=== PATIENT | male | born 1965 | race Caucasian/White ===

== ENCOUNTER 2017-08-19 15:04 | Emergency (ER) | payer SELFPAY ==
[~2017-08-19] VITALS: Ht 180.3 cm; Wt 86.5 kg
[2017-08-19 15:09] VITALS: TEMP 36.5; Ht 180.3 cm; Wt 86.5 kg
[2017-08-19] MEDS ORDERED: IBUP-1459 PO (15:39)
--- NOTE | 2017-08-19 16:09 | EMERGENCY ROOM VISIT NOTE ---
ED Visit Note First contact with patient: 15:38 CHIEF COMPLAINT: Low back pain HISTORY OF PRESENT ILLNESS: This 51-year-old male patient presents to the emergency department, ambulatory, complaining of pain in the low back which began approximately one week ago. The pain was gradual in onset, is now constant and worse with movement. The patient notes the pain as constant and a 10/10. The patient has taken 800 mg ibuprofen once daily on occasion without relief of the pain. The patient denies any loss of control of their bowel or bladder functions. There has been no leg numbness or weakness, and no change in sensation. No nausea or vomiting or abdominal pain. No chest pain or shortness of breath. The patient has not had prior back injuries, but states he has had a history of similar back pain which was treated successfully with prednisone. No dysuria or increased urinary frequency. REVIEW OF SYSTEMS: A 10 system review of systems was performed with positives and pertinent negatives listed in the history of present illness. All other systems were reviewed and are negative. ALLERGIES: None MEDICATIONS: None PMH: None SOCIAL HISTORY: The patient lives locally with family. He denies drug use. Patient does admit to occasional alcohol use and does chew tobacco. PHYSICAL EXAM: VITALS: Vitals are noted on the nurse's note and reviewed by myself. Vital signs stable. GENERAL: This is a 51-year-old white male, in no acute distress, nondiaphoretic , well-developed well-nourished. SKIN: The skin was without rashes, erythema, edema, or bruising. Capillary refill less than 2 seconds. NECK: Supple without nuchal rigidity. No cervical spine tenderness. No paraspinous muscle tenderness. HEART: Regular rate and rhythm without murmurs gallops or rubs. LUNGS: Clear to auscultation bilaterally without wheezes, rales or rhonchi. ABDOMEN: Positive bowel sounds x 4. Normal tympanic percussion. Soft, nontender, without masses or organomegaly. Green sign negative. MUSCULOSKELETAL: No muscle atrophy, erythema, or edema noted of the back. There is mild tenderness over the lumbar spinous processes. There is moderate tenderness over the paraspinous muscles bilaterally. There is no tenderness over the thoracic spine or paraspinous muscles. There are no muscle spasms present. The patient is slow to move around with maximum tenderness with sitting from a lying position. Negative straight leg raise test. NEURO: Patient was alert and oriented to person place and time. Normal sensation to light and sharp touch. Deep tendon reflexes 2+ in the lower extremities. Dorsalis pedis pulse 2+ bilaterally. Strength 5/5 and equal in the bilateral lower extremities. RADIOLOGY: X-Ray L Spine: L-SPINE MIN 4 VIEWS ROUTINE CLINICAL HISTORY: Low back pain. COMPARISON: Lumbar spine radiographs October 13, 2008. FINDINGS: Note is made of mild rightward curvature of the lumbar spine. Vertebral body heights are maintained. There is no fracture or suspicious lesion. There is mild disc space narrowing with moderate osteophytosis at L5-S1. There is mild multilevel facet arthrosis. IMPRESSION: 1. No acute lumbar spine fracture. 2. Mild degenerative disc disease at L5-S1. Mild multilevel facet arthrosis. 3. Mild rightward curvature of the lumbar spine. Electronically signed by: Sanju Tamayo M.D. 08/19/2017 4:44 PM Dictated Date/Time: 08/19/2017 4:43 PM EMERGENCY DEPARTMENT COURSE: The patient was seen and evaluated as above. X- ray of the lumbar spine was obtained and reviewed by myself and radiologist. This did not show any acute fracture or dislocation. It did show a mild rightward curvature of the lumbar spine and degenerative disc disease at L5-S1. I discussed these findings with the patient, and encouraged him to follow up outpatient with a PCP. Proper treatment was discussed with the patient and he was discharged home in good condition. DIFFERENTIAL DIAGNOSIS: Lumbar strain, degenerative disc disease, arthritis, cauda equina syndrome, sciatica, spinal stenosis, malignancy, and others DIAGNOSIS: Lumbar strain DISCHARGE INSTRUCTIONS AND TREATMENT: You have been treated in the Emergency Department for Back Pain. You have been prescribed Flexeril (cyclobenzaprine) 1-2 tabs orally, three times per day. Do NOT exceed 30 mg (6 tabs) per day. Take your first dose at bedtime as it can make you drowsy. Always take all medications as prescribed. You have been prescribed a Medrol Dosepak. This is a steroid which will help decrease your inflammation, redness, and itch. Take the medicine as prescribed. Take the ENTIRE 6 day course of the steroids. For pain control, you can use the following [id number] medicines (if >12 yo): Ibuprofen(Motrin, Advil) may be used for fever or pain. Use 600mg every six hours as needed. Take with food. Avoid using more than 2400mg in a 24 hour period. Do not use 2400mg per day for more than three consecutive days without physician direction. Prolonged inappropriate use can lead to stomach upset or ulcers. Do not take this medication while taking Prednisone (AND/OR) Acetaminophen(Tylenol) may be used for fever or pain. Use 1000mg every six hours as needed. Avoid using more than 3000mg in a 24 hour period. If this is an acute injury, ice can be applied to the area of pain for the first 3 days to help decrease pain and inflammation. After the first 3 days, a heating pad can be used over the area for continued soothing relief. You should schedule a follow-up appointment in 2-3 days with your Primary Care Provider for further evaluation and treatment of your back pain. Return to the Emergency Department if your current symptoms worsen despite treatment course outlined above, or if you develop any of the following symptoms : intractable pain despite aforementioned treatment course, loss of control of your bowel or bladder, numbness or tingling in your groin, or development of a fever. Problem List Medical Problems: (1) Acute bronchitis Status: Resolved (2) Asthma Status: Chronic (3) GERD (gastroesophageal reflux disease) Status: Chronic (4) H. pylori infection Status: Resolved (5) Pneumonia Status: Resolved Current/Historical Medications Scheduled Cyclobenzaprine Hcl (Flexeril), 5 MG PO TID Methylprednisolone (Medrol Dosepak), 0 PO DAILY Scheduled PRN Ibuprofen (Motrin), 400 MG PO Q2-4 PRN for Pain Allergies Coded Allergies: No Known Allergies (Verified , 08/19/17) Vital Signs Date Time Temp Pulse Resp B/P (MAP) Pulse Ox O2 Delivery O2 Flow Rate FiO2 08/19/17 17:11 60 16 155/74 96 08/19/17 15:09 36.5 78 18 149/76 93 Room Air Departure Information Impression Primary Impression: Strain of lumbar region Dispostion Home / Self-Care Condition GOOD Prescriptions Cyclobenzaprine Hcl (FLEXERIL) 5 Mg Tab 5 MG PO TID, #18 TAB PRN Prov: Christy Pichardo PA-C 08/19/17 Methylprednisolone (MEDROL DOSEPAK) 4 Mg Moisés 0 PO DAILY, #1 PKT Prov: Christy Pichardo PA-C 08/19/17 Referrals No Doctor, Assigned (PCP) Patient Instructions ED Exercises Lumbar Muscles, ED Sprain Strain Lumbar, My [facility] Additional Instructions You have been treated in the Emergency Department for Back Pain. You have been prescribed Flexeril (cyclobenzaprine) 1-2 tabs orally, three times per day. Do NOT exceed 30 mg (6 tabs) per day. Take your first dose at bedtime as it can make you drowsy. Always take all medications as prescribed. You have been prescribed a Medrol Dosepak. This is a steroid which will help decrease your inflammation, redness, and itch. Take the medicine as prescribed. Take the ENTIRE 6 day course of the steroids. For pain control, you can use the following aeep-zmk-ionyvts medicines (if >12 yo): Ibuprofen(Motrin, Advil) may be used for fever or pain. Use 600mg every six hours as needed. Take with food. Avoid using more than 2400mg in a 24 hour period. Do not use 2400mg per day for more than three consecutive days without physician direction. Prolonged inappropriate use can lead to stomach upset or ulcers. Do not take this medication while taking Prednisone (AND/OR) Acetaminophen(Tylenol) may be used for fever or pain. Use 1000mg every six hours as needed. Avoid using more than 3000mg in a 24 hour period. If this is an acute injury, ice can be applied to the area of pain for the first 3 days to help decrease pain and inflammation. After the first 3 days, a heating pad can be used over the area for continued soothing relief. You should schedule a follow-up appointment in 2-3 days with your Primary Care Provider for further evaluation and treatment of your back pain. Return to the Emergency Department if your current symptoms worsen despite treatment course outlined above, or if you develop any of the following symptoms : intractable pain despite aforementioned treatment course, loss of control of your bowel or bladder, numbness or tingling in your groin, or development of a fever. Problem Qualifiers Primary Impression: Strain of lumbar region Encounter type: initial encounter Qualified Codes: S39.012A - Strain of muscle, fascia and tendon of lower back, initial encounter
--- NOTE | 2017-08-19 16:45 | DIAGNOSTIC IMAGING REPORT ---
L-SPINE MIN 4 VIEWS ROUTINE CLINICAL HISTORY: Low back pain. COMPARISON: Lumbar spine radiographs October 13, 2008. FINDINGS: Note is made of mild rightward curvature of the lumbar spine. Vertebral body heights are maintained. There is no fracture or suspicious lesion. There is mild disc space narrowing with moderate osteophytosis at L5-S1. There is mild multilevel facet arthrosis. IMPRESSION: 1. No acute lumbar spine fracture. 2. Mild degenerative disc disease at L5-S1. Mild multilevel facet arthrosis. 3. Mild rightward curvature of the lumbar spine. Electronically signed by: Sanju Tamayo M.D. 08/19/2017 4:44 PM Dictated Date/Time: 08/19/2017 4:43 PM
[2017-08-19] MEDS ORDERED: METH4PAK PO (16:55)
[2017-08-19] MEDS ORDERED: CYCL5TAB PO (16:55)
[2017-08-19 17:11] VITALS: BP 155/74; PULSE 60; O2SAT 96
== END 2017-08-19 17:07 | disposition home or self-care (01) ==
LOC: C.EDB 15:05 → C.EDD 17:07
DX: S39.012A Strain of muscle, fascia and tendon of lower back, initial encounter (principal); X58.XXXA Exposure to other specified factors, initial encounter; F17.220 Nicotine dependence, chewing tobacco, uncomplicated; J45.909 Unspecified asthma, uncomplicated; K21.9 Gastro-esophageal reflux disease without esophagitis

== ENCOUNTER 2017-10-23 12:36 | Emergency (ER) | payer SELFPAY ==
[~2017-10-23] VITALS: Ht 180.3 cm; Wt 86.0 kg
[~2017-10-23 12:36] MED LIST: IBUP-1459 PO
[2017-10-23 12:40] VITALS: TEMP 36.8; Ht 180.3 cm; Wt 86.0 kg
[2017-10-23] MEDS ORDERED: ALBUT/IPRATROP 3MG/0.5MG NEB 3 ML VIAL INH STA (13:02)
[2017-10-23] MEDS ORDERED: SODIUM CHLORIDE 0.9% 1000ML 1,000 ML IV STA (13:02)
[2017-10-23] MEDS ORDERED: FAMOTIDINE 20MG/5ML IV PUSH IV STA (13:02)
[2017-10-23] MEDS ORDERED: ONDANSETRON INJ 2 MG/ML 2 ML VIAL IV STA (13:02)
--- NOTE | 2017-10-23 13:29 | DIAGNOSTIC IMAGING REPORT ---
CHEST ONE VIEW PORTABLE CLINICAL HISTORY: CHEST PAIN dyspnea COMPARISON STUDY: 02/02/2016 FINDINGS: Minimal chronic basilar interstitial change. No focal infiltrate. No evidence of cardiac enlargement. IMPRESSION: No acute process. The above report was generated using voice recognition software. It may contain grammatical, syntax or spelling errors. Electronically signed by: Oz Meehan M.D. 10/23/2017 1:28 PM Dictated Date/Time: 10/23/2017 1:27 PM
[2017-10-23 13:38] VITALS: O2SAT 96
--- NOTE | 2017-10-23 13:39 | EMERGENCY ROOM VISIT NOTE ---
History Report prepared by Felice: Ousmane Harrell Under the Supervision of: Dr. Gee Escudero M.D. First contact with patient: 13:01 Chief Complaint: ILLNESS Stated Complaint: CHEST COLD History of Present Illness The patient is a 51 year old male who presents to the Emergency Room with complaints of cough and congestion that began 3 days ago. The patient reports fevers Tmax 101 F began 2 days ago. He endorses constant chest pain, tightness, nausea, vomiting, and thick sputum production with his cough. He denies diarrhea and previous episodes of chest pain of this degree. The patient denies a history of blood clots, smoking, and no pertinent medical problems. 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 Source of History: patient Onset: 3 days ago Position: chest Quality: other (chest pain and tightness) Timing: constant Associated Symptoms: + fevers, + cough (with sputum production), + chest pain, + nausea, + vomiting, No diarrhea Review of Systems See HPI for pertinent positives and negatives. A total of ten systems were reviewed and were otherwise negative. Past Medical & Surgical Medical Problems: (1) Acute bronchitis (2) Asthma (3) GERD (gastroesophageal reflux disease) (4) H. pylori infection (5) No chronic diseases present (6) Pneumonia Family History Diabetes mellitus FH: cancer Hypertension Lung disease Thromboembolic disease Social History Smoking Status: Never Smoker Alcohol Use: none Drug Use: none Marital Status: Housing Status: lives with family Occupation Status: employed (regional owner operator truck driver) Current/Historical Medications Scheduled Azithromycin (Zithromax), 250 MG PO DAILY Famotidine (Pepcid), 20 MG PO BID Ondasetron Odt (Zofran Odt), 4 MG SL Q6H Scheduled PRN Albuterol Sulf (Proventil 0.083% 2.5MG/3ML), 2.5 MG INH QID PRN for Cough Allergies Coded Allergies: No Known Allergies (Verified , 10/23/17) Physical Exam Vital Signs Date Time Temp Pulse Resp B/P (MAP) Pulse Ox O2 Delivery O2 Flow Rate FiO2 10/23/17 16:20 75 17 128/80 93 10/23/17 15:27 79 19 125/77 93 Room Air 10/23/17 13:55 84 10/23/17 13:38 96 Room Air 10/23/17 12:40 36.8 98 20 141/79 92 Room Air Physical Exam GENERAL: Awake, alert, uncomfortable appearing, in no distress HENT: Normocephalic, atraumatic. Oropharynx unremarkable, dry cracked mucous membranes EYES: Normal conjunctiva. Sclera non-icteric. NECK: Supple. No nuchal rigidity. FROM. No JVD. RESPIRATORY: Clear to auscultation. Decreased breath sounds at bases with scattered rhonchi; scant wheeze CARDIAC: Regular rate, normal rhythm. Extremities warm and well perfused. Pulses equal. ABDOMEN: Soft, non-distended. No tenderness to palpation. No rebound or guarding. No masses. RECTAL: Deferred. MUSCULOSKELETAL: Chest examination reveals no tenderness. The back is symmetrical on inspection without obvious abnormality. There is no CVA tenderness to palpation. No joint edema. LOWER EXTREMITIES: Calves are equal size bilaterally and non-tender. No edema. No discoloration. NEURO: Normal sensorium. No sensory or motor deficits noted. SKIN: No rash or jaundice noted. Medical Decision & Procedures ER Provider Diagnostic Interpretation: Radiology results as stated below per my review and radiologist interpretation: CHEST ONE VIEW PORTABLE CLINICAL HISTORY: CHEST PAIN dyspnea COMPARISON STUDY: 02/02/2016 FINDINGS: Minimal chronic basilar interstitial change. No focal infiltrate. No evidence of cardiac enlargement. IMPRESSION: No acute process. The above report was generated using voice recognition software. It may contain grammatical, syntax or spelling errors. Electronically signed by: Oz Meehan M.D. 10/23/2017 1:28 PM Laboratory Results 10/23/17 13:30 Red Blood Count 4.45, Mean Corpuscular Volume 90.1, Mean Corpuscular Hemoglobin 31.0, Mean Corpuscular Hemoglobin Concent 34.4, Mean Platelet Volume 9.5, Neutrophils (%) (Auto) 70.3, Lymphocytes (%) (Auto) 15.6, Monocytes (%) (Auto) 9.6, Eosinophils (%) (Auto) 3.2, Basophils (%) (Auto) 0.5, Neutrophils # (Auto) 10.56, Lymphocytes # (Auto) 2.35, Monocytes # (Auto) 1.45, Eosinophils # (Auto) 0.48, Basophils # (Auto) 0.07 10/23/17 13:30 Test 10/23/17 13:30 10/23/17 13:45 White Blood Count 15.03 K/uL (4.8-10.8) Red Blood Count 4.45 M/uL (4.7-6.1) Hemoglobin 13.8 g/dL (14.0-18.0) Hematocrit 40.1 % (42-52) Mean Corpuscular Volume 90.1 fL (80-100) Mean Corpuscular Hemoglobin 31.0 pg (25-34) Mean Corpuscular Hemoglobin Concent 34.4 g/dl (32-36) Platelet Count 318 K/uL (130-400) Mean Platelet Volume 9.5 fL (7.4-10.4) Neutrophils (%) (Auto) 70.3 % Lymphocytes (%) (Auto) 15.6 % Monocytes (%) (Auto) 9.6 % Eosinophils (%) (Auto) 3.2 % Basophils (%) (Auto) 0.5 % Neutrophils # (Auto) 10.56 K/uL (1.4-6.5) Lymphocytes # (Auto) 2.35 K/uL (1.2-3.4) Monocytes # (Auto) 1.45 K/uL (0.11-0.59) Eosinophils # (Auto) 0.48 K/uL (0-0.5) Basophils # (Auto) 0.07 K/uL (0-0.2) RDW Standard Deviation 40.5 fL (36.4-46.3) RDW Coefficient of Variation 12.4 % (11.5-14.5) Immature Granulocyte % (Auto) 0.8 % Immature Granulocyte # (Auto) 0.12 K/uL (0.00-0.02) Anion Gap 8.0 mmol/L (3-11) Est Creatinine Clear Calc Drug Dose 119.7 ml/min Estimated GFR () 120.7 Estimated GFR (Non- 104.2 BUN/Creatinine Ratio 15.9 (10-20) Calcium Level 8.9 mg/dl (8.5-10.1) Total Bilirubin 0.2 mg/dl (0.2-1) Direct Bilirubin 0.1 mg/dl (0-0.2) Aspartate Amino Transf (AST/SGOT) 37 U/L (15-37) Alanine Aminotransferase (ALT/SGPT) 77 U/L (12-78) Alkaline Phosphatase 137 U/L (45-117) Troponin I < 0.015 ng/ml (0-0.045) Total Protein 7.6 gm/dl (6.4-8.2) Albumin 2.9 gm/dl (3.4-5.0) Lipase 61 U/L (73-393) Influenza Type A Antigen Neg for Influ A (NEG) Influenza Type B Antigen Neg for Influ B (NEG) Laboratory results reviewed by me Medications Administered Medications (Trade) Dose Ordered Sig/Vishal Route Start Time Stop Time Status Last Admin Dose Admin Albuterol/ Ipratropium (Duoneb) 3 ml NOW STAT INH 10/23/17 13:02 10/23/17 13:10 DC 10/23/17 13:27 3 ML Sodium Chloride 1,000 ml @ 999 mls/hr Q1H1M STAT IV 10/23/17 13:02 10/23/17 14:17 DC 10/23/17 13:27 999 MLS/HR Ondansetron HCl (Zofran Inj) 4 mg NOW STAT IV 10/23/17 13:02 10/23/17 13:10 DC 10/23/17 13:27 4 MG Famotidine (Pepcid 20mg Iv Push) 20 mg NOW STAT IV 10/23/17 13:02 10/23/17 13:10 DC 10/23/17 13:27 20 MG Albuterol (Ventolin Hfa Inhaler) 2 puffs NOW ONCE INH 10/23/17 16:15 10/23/17 16:16 DC 10/23/17 16:20 2 PUFFS Azithromycin (Zithromax Tab) 500 mg NOW ONCE PO 10/23/17 16:15 10/23/17 16:16 DC 10/23/17 16:20 500 MG ECG Rate (beats per minute): 84 Rhythm: normal sinus Findings: other (no ischemia) Medical Decision I reviewed the patient's past medical history, medications, and the nursing notes as described above. The patient's presentation and history were concerning for pneumonia, bronchitis , CHF, ACS, and PE. Patient is a 51-year-old gentleman presents emergency Department with cough congestion, fevers and chills for the past several days per history of present illness. Arrival the patient is uncomfortable no acute distress, afebrile with stable vital signs. He has scant scattered rhonchi and wheezes. Labs demonstrated a WBC of 15. Chest x-ray however unremarkable and negative for pneumonia. The patient did feel mild improvement with neb. Given the patient' s elevated WBC as well as productive cough will treat with azithromycin. Findings and plan for follow-up reviewed with patient. Patient agreeable and d/c 'd per discharge instructions. Impression Primary Impression: Acute bronchitis Scribe Attestation The scribe's documentation has been prepared under my direction and personally reviewed by me in its entirety. I confirm that the note above accurately reflects all work, treatment, procedures, and medical decision making performed by me. Departure Information Dispostion Home / Self-Care Prescriptions Famotidine (PEPCID) 20 Mg Tab 20 MG PO BID for 7 Days, #14 TAB Prov: Gee Escudero M.D. 10/23/17 Ondasetron Odt (ZOFRAN ODT) 4 Mg Tab 4 MG SL Q6H for Nausea, #6 TAB Prov: Gee Escudero M.D. 10/23/17 Azithromycin (Zithromax) 250 Mg Tab 250 MG PO DAILY, #4 TAB Prov: Gee Escudero M.D. 10/23/17 Albuterol Sulf (PROVENTIL 0.083% 2.5MG/3ML) 2.5 Mg/3 Ml Nebu 2.5 MG INH QID Y for Cough, #1 EA Prov: Gee Escudero M.D. 10/23/17 Referrals No Doctor, Assigned (PCP) Patient Instructions Bronchitis Acute, My [facility] Additional Instructions Please follow up with and establish a primary care physician in the next week for re-evaluation. You likely have a bronchitis with an associated gastritis. Otherwise, your exam, EKG, chest xray, and lab results did not show signs of an emergent condition at this time. Albuterol every 4 hours for the next 48 hours then thereafter as needed. Azithromycin as directed. Pepcid for acid reduction. Zofran as needed for nausea. Ensure hydration. Return to the emergency department for worsening symptoms as described in the accompanying instructions.
[2017-10-23 13:54] LABS: BASO % 0.5 %; BASO ABS # 0.07 K/uL (0-0.2); COMPLETE YES; EOS % 3.2 %; HEMATOCRIT 40.1 % (42-52); IG% 0.8 %; LYMPH % 15.6 %; LYMPH ABS # 2.35 K/uL (1.2-3.4); MEAN CELL VOLUME 90.1 fL (80-100); MEAN CORPUSCULAR HGB CONC 34.4 g/dl (32-36); MEAN PLATELET VOLUME 9.5 fL (7.4-10.4); MONO % 9.6 %; NEUT % 70.3 %; PLATELET COUNT 318 K/uL (130-400); RED BLOOD COUNT 4.45 M/uL (4.7-6.1); WHITE BLOOD COUNT 15.03 K/uL (4.8-10.8)
[2017-10-23 14:04] LABS: ALT/SGPT 77 U/L (12-78); AST/SGOT 37 U/L (15-37); BLOOD UREA NITROGEN 12 mg/dl (7-18); BUN/CREATININE RATIO 15.9 (10-20); CALCIUM 8.9 mg/dl (8.5-10.1); CARBON DIOXIDE 28 mmol/L (21-32); CHLORIDE 104 mmol/L (98-107); CREATININE 0.76 mg/dl (0.60-1.40); GLUCOSE 114 mg/dl (70-99); POTASSIUM 3.5 mmol/L (3.5-5.1); SODIUM 140 mmol/L (136-145)
[2017-10-23 14:09] LABS: ALKALINE PHOSPHATASE 137 U/L (45-117)
[2017-10-23] MEDS ORDERED: AZIT250T PO (16:00)
[2017-10-23] MEDS ORDERED: ALBINS/ INH (16:00)
[2017-10-23] MEDS ORDERED: ONDA4TAB10 SL (16:03)
[2017-10-23] MEDS ORDERED: FAMO20TA9 PO (16:03)
[2017-10-23] MEDS ORDERED: AZITHROMYCIN 250 MG TAB PO ONE (16:15)
[2017-10-23] MEDS ORDERED: ALBUTEROL HFA 8 GM INHALER INH ONE (16:15)
[2017-10-23 16:20] VITALS: BP 128/80; PULSE 75; O2SAT 93
== END 2017-10-23 16:21 | disposition home or self-care (01) ==
LOC: C.EDB 12:37 → C.EDA 16:21
DX: J20.9 Acute bronchitis, unspecified (principal); J45.909 Unspecified asthma, uncomplicated; K21.9 Gastro-esophageal reflux disease without esophagitis; Z86.19 Personal history of other infectious and parasitic diseases; Z87.01 Personal history of pneumonia (recurrent); Z79.899 Other long term (current) drug therapy; Z83.3 Family history of diabetes mellitus; Z80.9 Family history of malignant neoplasm, unspecified; Z82.49 Family history of ischemic heart disease and other diseases of the circulatory system

== ENCOUNTER 2019-10-23 13:11 | Observation (INO) ==
[2019-10-23 14:57] LABS: Basophils # (auto) 0.03 K/uL (0-0.2); Basophils % (auto) 0.3 %; Eosinophils # (auto) 0.14 K/uL (0-0.5); Eosinophils % (auto) 1.6 %; Hematocrit (blood only) 43.7 % (42-52); Hemoglobin 15.1 g/dL (14.0-18.0); Immature Granulocytes # (auto) 0.02 K/uL (0.00-0.02); Immature Granulocytes % (auto) 0.2 %; Lymphocytes # (auto) 1.89 K/uL (1.2-3.4); Lymphocytes % (auto) 21.8 %; Mean Corpuscular Hemoglobin 30.8 pg (25-34); Mean Corpuscular Hgb Conc 34.6 g/dL (32-36); Mean Corpuscular Volume 89.2 fL (80-100); Mean Platelet Volume 9.1 fL (7.4-10.4); Monocytes # (auto) 0.69 K/uL (0.11-0.59); Neutrophils # (auto) 5.88 K/uL (1.4-6.5); Neutrophils % (auto) 68.1 %; Platelet Count 240 K/uL (130-400); RDW Coefficient of Variation 12.3 % (11.5-14.5); RDW Standard Deviation 39.3 fL (36.4-46.3); White Blood Count 8.65 K/uL (4.8-10.8)
--- NOTE | 2019-10-23 15:12 | XRay Report ---
XR chest 1V portable CLINICAL HISTORY: Chest Pain pain COMPARISON STUDY: 10/23/2017 FINDINGS: The bones soft tissues and hemidiaphragms are normal. The cardiomediastinal silhouette is n ormal. The lungs are clear. The pulmonary vasculature is normal. IMPRESSION: Negative chest. The above report was generated using voice recognition software. It may contain grammatical, syntax or spelling errors. Electronically signed by: Oz Meehan M.D. 10/23/2019 3:11 PM
[2019-10-23 15:19] LABS: Alanine Aminotransferase 25 U/L (12-78); Albumin Level 3.6 gm/dl (3.4-5.0); Aspartate Aminotransferase 14 U/L (15-37); BUN Creatinine Ratio 18.1 (10-20); Blood Urea Nitrogen 16 mg/dl (7-18); Calcium 8.3 mg/dl (8.5-10.1); Carbon Dioxide 28 mmol/L (21-32); Chloride 109 mmol/L (98-107); Creatinine Clr Calc Pharmacy 98.8 ml/min; Est GFR (Non-African American) 95.8; Glucose 108 mg/dl (70-99); Lipase 51 U/L (73-393); Potassium 3.5 mmol/L (3.5-5.1); Sodium 141 mmol/L (136-145)
[2019-10-23] MEDS ORDERED: ALBUTEROL 0.083% NEBU SOLN 3 ML VIAL NEB STA (15:23)
[2019-10-23 15:24] LABS: Alkaline Phosphatase 57 U/L (45-117); Bilirubin,Total 0.4 mg/dl (0.2-1); Globulin 3.5 gm/dl (2.5-4.0); Total Protein 7.1 gm/dl (6.4-8.2); Troponin I < 0.015 ng/ml (0-0.045)
[2019-10-23] MEDS ORDERED: methylPREDNISolone 125 MG/2 ML VIAL IV STA (15:59)
[2019-10-23] MEDS ORDERED: LEVOFLOXACIN/D5W 750 MG/150 ML BAG IV SCH (16:45)
--- NOTE | 2019-10-23 19:02 | Emergency Department Note ---
Entered by Aurora Burr acting as a scribe for Vahe Meneses DO History of Present Illness General Chief complaint: Chest Pain Stated complaint: CHEST PAIN Source: patient History of Present Illness Onset (ago): month(s) 3 Location: chest Pain Consistency: + other (worsening ) Maximum Pain Intensity: 6 Quality: + other (shortness of breath) Exacerbated By: + other (exertion) Associated symptoms: + chest pain (intermittent), + cough (productive with white phlegm ) and + other (negative recent weight gain; positive "raspy"; negative pain in arm or jaw; negative runny nose; negative sore throat) The patient is a 53 year old male who presents to the Emergency Room with complaints of worsening shortness of breath that began 3 months prior to arriv al. The patient states that this is worse with exertion. He states that he is unable to bend over because he is unable to breathe. The patient denies recent weight gain. The patient states that he gets chest pain intermittently not associated with his shortness of breath. He states that with the episodes of chest pain he gets "raspy" and a productive cough with white phlegm. The patient denies pain in his arm or jaw, runny nose, and sore throat. The patient states that he got an episode of this chest pain at 1000 today, approximately 7 hours prior to arrival and states that he still has it now. He states that he gets this several times per week and it lasts for several hours. Home Medications Home Medications Medication Instructions Recorded Confirmed Type No Known Home Medications 10/23/19 10/23/19 History Allergies Allergy/AdvReac Type Severity Reaction Status Date / Time No Known Allergies Allergy Verified 10/23/19 15:32 Past Med/Surg History Medical History Asthma (Chronic) GERD (gastroesophageal reflux disease) (Chronic) Family History Other No pertinent family history in first degree relatives Social History Feels Safe at Home: Yes Smoking Status: Former smoker Review of Systems See HPI for pertinent positives & negatives. and A total of 10 systems reviewed and were otherwise negative Physical Exam Vital Signs Vital Signs - 24 hr 10/23/19 13:21 10/23/19 14:29 10/23/19 15:00 Temperature 36.6 C Temperature Source Oral Pulse Rate 71 73 Pulse Rate [Exercises] Pulse Rate [Right Finger] 70 Pulse Rate from SpO2 Sensor Respiratory Rate 20 18 18 Respiratory Rate [Exercises] Respiratory Effort / Characteristics Non-Labored Spontaneous Respiratory Depth Normal Respiratory Pattern Regular Blood Pressure 153/83 H 131/82 Blood Pressure [Right Arm] 153/73 H Blood Pressure Mean 106 93 Blood Pressure Mean [Right Arm] 99 Pulse Oximetry 94 94 Pulse Oximetry [Exercises] Oxygen Delivery Method Room Air Sepsis Recent Fever Within 48 Hours No Sepsis New/Unexplained Change in Mental Status No Sepsis Action Taken by Nursing No Action Required 10/23/19 15:01 10/23/19 15:02 10/23/19 15:09 Temperature Temperature Source Pulse Rate 65 63 74 Pulse Rate [Exercises] Pulse Rate [Right Finger] Pulse Rate from SpO2 Sensor 75 Respiratory Rate 20 20 17 Respiratory Rate [Exercises] Respiratory Effort / Characteristics Respiratory Depth Respiratory Pattern Blood Pressure 131/82 Blood Pressure [Right Arm] Blood Pressure Mean 98 Blood Pressure Mean [Right Arm] Pulse Oximetry 95 94 94 Pulse Oximetry [Exercises] Oxygen Delivery Method Room Air Room Air Sepsis Recent Fever Within 48 Hours Sepsis New/Unexplained Change in Mental Status Sepsis Action Taken by Nursing 10/23/19 15:32 10/23/19 15:35 10/23/19 15:57 Temperature Temperature Source Pulse Rate 67 Pulse Rate [Exercises] 88 Pulse Rate [Right Finger] 63 Pulse Rate from SpO2 Sensor 66 Respiratory Rate 15 18 Respiratory Rate [Exercises] 28 H Respiratory Effort / Characteristics Non-Labored Spontaneous Respiratory Depth Respiratory Pattern Blood Pressure Blood Pressure [Right Arm] Blood Pressure Mean Blood Pressure Mean [Right Arm] Pulse Oximetry 94 93 Pulse Oximetry [Exercises] 94 Oxygen Delivery Method Room Air Room Air Sepsis Recent Fever Within 48 Hours Sepsis New/Unexplained Change in Mental Status Sepsis Action Taken by Nursing 10/23/19 16:00 10/23/19 16:01 10/23/19 17:50 Temperature Temperature Source Pulse Rate 58 L 58 L 70 Pulse Rate [Exercises] Pulse Rate [Right Finger] Pulse Rate from SpO2 Sensor 55 L 60 Respiratory Rate 12 16 22 Respiratory Rate [Exercises] Respiratory Effort / Characteristics Respiratory Depth Respiratory Pattern Blood Pressure 139/56 L 138/74 Blood Pressure [Right Arm] Blood Pressure Mean 100 95 Blood Pressure Mean [Right Arm] Pulse Oximetry 79 L 99 97 Pulse Oximetry [Exercises] Oxygen Delivery Method Room Air Sepsis Recent Fever Within 48 Hours Sepsis New/Unexplained Change in Mental Status Sepsis Action Taken by Nursing 10/23/19 18:51 Temperature Temperature Source Pulse Rate 68 Pulse Rate [Exercises] Pulse Rate [Right Finger] Pulse Rate from SpO2 Sensor Respiratory Rate 20 Respiratory Rate [Exercises] Respiratory Effort / Characteristics Respiratory Depth Respiratory Pattern Blood Pressure 141/76 H Blood Pressure [Right Arm] Blood Pressure Mean 97 Blood Pressure Mean [Right Arm] Pulse Oximetry 94 Pulse Oximetry [Exercises] Oxygen Delivery Method Room Air Sepsis Recent Fever Within 48 Hours Sepsis New/Unexplained Change in Mental Status Sepsis Action Taken by Nursing GENERAL: Chronically ill-appearing, disheveled, non-toxic, intermittent cough. EYE EXAM: normal conjunctiva OROPHARYNX: no exudate, no erythema, lips, buccal mucosa, and tongue normal and mucous membranes are moist NECK: supple, no nuchal rigidity, no adenopathy, non-tender LUNGS: Diffuse wheezing bilaterally. Normal chest wall mechanics HEART: no murmurs, S1 normal and S2 normal ABDOMEN: abdomen soft, non-tender, normo-active bowel sounds, no masses, no rebound or guarding. BACK: Back is symmetrical on inspection and there is no deformity, no midline tenderness, no CVA tenderness. SKIN: no rashes and no bruising UPPER EXTREMITIES: upper extremities are grossly normal. LOWER EXTREMITIES: No pitting edema. Calves are equal bilaterally. NEURO EXAM: Normal sensorium, cranial nerves II-XII grossly intact, normal speech, no gross weakness of arms, no gross weakness of legs. Course Course ED COURSE: Vital signs were reviewed and showed normal. The patients medical record was reviewed The above diagnostic studies were performed and reviewed. ED treatments and interventions as stated above. 1645: The patient was evaluated in room C6. A complete history and physical examination was performed. 1636: The patient just became hypoxic. 1637: Upon reevaluation, the patient is resting comfortably. I discussed my findings with the patient and he understands and agrees with the treatment plan. Based on the patients age, coexisting illnesses, exam and lab findings the decision to treat as an inpatient was made. The patient remained stable while under my care. 1641: The patient will be evaluated for further management. I discussed the case with Meredith Ramos-[facility] who accepts the patient for further evaluation under Dr. Bennett-[facility] Hospitalist service. Administered Medications Levofloxacin/Dextrose (Levaquin/D5w) 750 mg in 150 mls @ 100 mls/hr IV Q24H FREDERIC Stop: 12/04/19 16:44 Last Infusion: 10/23/19 18:20 Dose: 0 mls/hr Documented by: [id number] Admin: 10/23/19 16:56 Dose: 100 mls/hr Documented by: [id number] Discontinued Medications Albuterol (Ventolin 0.083% 2.5mg/3ml) 5 mg NEB NOW STA Stop: 10/23/19 15:24 Last Admin: 10/23/19 15:56 Dose: 5 mg Documented by: [id number] Methylprednisolone (Solumedrol) 125 mg IV NOW STA Stop: 10/23/19 16:00 Last Admin: 10/23/19 16:08 Dose: 125 mg Documented by: [id number] Medical Decision Making Differential Diagnosis Differential diagnoses includes but is not limited to pneumonia, bronchitis, COPD/Asthma exacerbation, pneumothorax, pulmonary embolism, congestive heart failure, acute coronary syndrome Medical Records Attestation: I reviewed the patient's medical records. Home Medications Current Medication List: was personally reviewed by me Laboratory Data Attestation: I reviewed the patient's lab results. Result diagrams: 10/23/19 14:40 10/23/19 14:40 Lab Results 10/23/19 10/23/19 10/23/19 Range/Units 14:40 14:40 16:13 WBC 8.65 (4.8-10.8) K/uL RBC 4.90 (4.7-6.1) M/uL Hgb 15.1 (14.0-18.0) g/dL Hct 43.7 (42-52) % MCV 89.2 (80-100) fL MCH 30.8 (25-34) pg MCHC 34.6 (32-36) g/dL RDW Std Deviation 39.3 (36.4-46.3) fL RDW Coeff of Nicolle 12.3 (11.5-14.5) % Plt Count 240 (130-400) K/uL MPV 9.1 (7.4-10.4) fL Immature Gran % (Auto) 0.2 % Neut % (Auto) 68.1 % Lymph % (Auto) 21.8 % Ingham % (Auto) 8.0 % Eos % (Auto) 1.6 % Baso % (Auto) 0.3 % Immature Gran # (Auto) 0.02 (0.00-0.02) K/uL Neut # (Auto) 5.88 (1.4-6.5) K/uL Lymph # (Auto) 1.89 (1.2-3.4) K/uL Ingham # (Auto) 0.69 H (0.11-0.59) K/uL Eos # (Auto) 0.14 (0-0.5) K/uL Baso # (Auto) 0.03 (0-0.2) K/uL Sodium 141 (136-145) mmol/L Potassium 3.5 (3.5-5.1) mmol/L Chloride 109 H (98-107) mmol/L Carbon Dioxide 28 (21-32) mmol/L Anion Gap 4.0 (3-11) BUN 16 (7-18) mg/dl Creatinine 0.90 (0.6-1.4) mg/dl Est Cr Clr Drug Dosing 98.8 ml/min Est GFR ( Amer) 111.0 Est GFR (Non-Af Amer) 95.8 BUN/Creatinine Ratio 18.1 (10-20) Glucose 108 H (70-99) mg/dl Calcium 8.3 L (8.5-10.1) mg/dl Total Bilirubin 0.4 (0.2-1) mg/dl AST 14 L (15-37) U/L ALT 25 (12-78) U/L Alkaline Phosphatase 57 (45-117) U/L Troponin I < 0.015 (0-0.045) ng/ml Total Protein 7.1 (6.4-8.2) gm/dl Albumin 3.6 (3.4-5.0) gm/dl Globulin 3.5 (2.5-4.0) gm/dl Albumin/Globulin Ratio 1.0 (0.9-2) Lipase 51 L (73-393) U/L Influenza Type A Ag Neg for Influ A (Neg) Influenza Type B Ag Neg for Influ B (Neg) Imaging Data Radiologist's Impression: Radiology results as stated below per my review and the radiologist's interpretation: XR chest 1V portable CLINICAL HISTORY: Chest Pain pain COMPARISON STUDY: 10/23/2017 FINDINGS: The bones soft tissues and hemidiaphragms are normal. The cardiomediastinal silhouette is normal. The lungs are clear. The pulmonary vasculature is normal. IMPRESSION: Negative chest. The above report was generated using voice recognition software. It may contain grammatical, syntax or spelling errors. Electronically signed by: Oz Meehan M.D. 10/23/2019 3:11 PM ECG Data Attestation: I personally reviewed and interpreted this ECG as follows: Indication: + chest pain and + SOB/dyspnea Rate (beats per minute): 69 Rhythm: + sinus rhythm ECG Intervals/blocks: + Normal QT-c ECG [place]: + Normal ECG Findings: + Other (poor baseline ); no PVCs Blood Pressure Blood Pressure Findings: Elevated blood pressure Blood Pressure Disposition: further management by hospitalist MDM Narrative Patient is a 53-year-old male who presents the ER for shortness of breath. This is been worsening for the past 3 months. Patient also admits to chest pain as well with this. He has a cough with clear mucus but this is been fairly unchanged. Previous smoker and history of asthma. IV was established blood work was obtained and showed no significant leukocytosis or anemia. BMP with a slightly elevated chloride. LFTs bilirubin and troponin was unremarkable. Lipase was unremarkable as well as influenza. Chest x-ray without any focal infiltrate. Patient was given IV fluids, IV steroids, neb treatments and Levaquin. He was slightly hypoxic 88 to 92%. He was extremely dyspneic with exertion although pulse ox actually slightly improved to the low 90s. Patient was updated bedside. Discussed with the hospitalist patient will be further evaluated. Discussed with Pt concerning signs and symptoms to watch out for. Pt was instructed to follow up with their PCP and discussed with the patient their option to return to the ED at anytime for persistent or worsening symptoms. The appropriate anticipatory guidance and out-patient management, including indications for return to the emergency department, were explained at length to the patient and understood. Impression & Plan COPD exacerbation, Hypoxia, High serum chloride, Asthma, Cough Discharge Plan Visit Data Chief Complaint: Chest Pain Stated Complaint: CHEST PAIN ED Provider: Vahe Meneses Discharge Problem: COPD exacerbation, Hypoxia, High serum chloride, Asthma, Cough Patient Disposition: Being Evaluated by Hospitalist Discharge Instructions Interventions: ED Discharge Assessment Last Done: 10/23/19 18:37 Discharge Problem: Asthma Qualifiers: Asthma severity: unspecified severity Asthma persistence: unspecified Asthma complication type: unspecified Qualified Code(s): J45.909 - Unspecified asthma, uncomplicated The scribe's documentation has been prepared under my direction and personally reviewed by me in its entirety. I confirm that the note above accurately reflects all work, treatment, procedures, and medical decision making performed by me.
--- NOTE | 2019-10-23 22:38 | History & Physical Report ---
Date of Service October 23, 2019 Assessment & Plan (1) Hypoxia: due to problem below (2) COPD exacerbation: 53 yo male with 25 pack year history with SOB on exertion Questionable history of COPD. Patient has never had Pulmonary function test. This will need to be done as an outpatient. will obtain echocardiogram. will place patient on steroids.Will continue levaquin. willl place on nebs. Due to short hospital stay, will hold off dvt prohphylaxis. History of Present Illness Chief Complaint: SOb upon exertion Primary Care Provider: [facility] PCP Patient is a 53-year-old male who does not normally follow with PCP presents with worsening shortness of breath on exertion which began of 3 to 6 months prior to arrival. Patient reports that walking up hills causes him to be short of breath. Patient also reports that bending forward also caused him to be short of breath. Patient denies any orthopnea. Patient reports that his shortness of breath has gotten worse in the past few days and has been accompanied by a productive cough with white phlegm as well as episodes of a dull chest pain. Pain would worsen with cough. Patient reports that the pain will currently rest and will last for hours.Patient reports having a [id number] history of smoking cigarettes. Patient denies ever having a poor function test. Patient denies any fever chills nausea vomiting. Patient quit smoking 7 years ago. H states he began smoking when he was 20. And never smoked more than a pack a day. Allergies Allergy/AdvReac Type Severity Reaction Status Date / Time No Known Allergies Allergy Verified 10/23/19 15:32 Home Medications Home Medications Medication Instructions Recorded Confirmed Type No Known Home Medications 10/23/19 10/23/19 History Past Med/Surg History Medical History Asthma (Chronic) GERD (gastroesophageal reflux disease) (Chronic) Family History (Updated 10/24/19 @ 08:51 by Gal Bennett) Mother Diabetes Other No pertinent family history in first degree relatives Social History Airplane Fueler Required: No Beliefs That Will Affect Care: None Current Living Situation: Spouse Other Information That Helps Us Care for You: No Feels Safe at Home: Yes Safety Concerns: Feels Safe At This Time Smoking Status: Former smoker Hx Alcohol Use: Yes Alcohol type: beer Hx Substance Use: No Review of Systems Constitutional: no sweats, no malaise and no weight loss Eyes: no diplopia and no decreased night vision Ear, Nose, Mouth, Throat: no ear trauma and no hyperacusis Respiratory: + cough, + change in sputum, + dyspnea, + dyspnea on exertion, + pain with cough and + sputum production Cardiovascular: no dyspnea at rest, no orthopnea and no lightheadedness Gastrointestinal: no abdominal pain and no early satiety Genitourinary: no urinary frequency and no post-void dribbling Musculoskeletal: no back pain and no loss of height Integumentary: no acne and no lesions Neurologic: no gait abnormality and no localized weakness Psychiatric: no behavioral changes and no anhedonia Endocrine: no fatigue Hematologic / Lymphatic: no easy bleeding Physical Exam Constitutional: WD/WN, vitals as above well developed and well nourished Eyes: PERRL, conjunctivae normal, anicteric sclerae ENMT: external ear and nose normal, oropharynx normal Neck: trachea midline, no thyromegaly Respiratory: normal respiratory effort, lungs clear to auscultation Cardiovascular: RRR, no murmur, no edema Gastrointestinal (Abdomen): normal bowel sounds, soft, nontender, no hepatosplenomegaly Musculoskeletal: no cyanosis or clubbing, extremities motor strength 5/5 Skin: no rashes, warm and dry Neurologic: PERRL, EOMI, accommodation nl, no face palsy, no dysarthria Psychiatric: A+Ox3, euthymic affect Lymphatic: no cervical or axillary lymphadenopathy Results & Data Vital Signs (Past 12 Hours) Vital Signs Temp Pulse Pulse Pulse Resp Resp BP 10/23/19 19:28 37.0 C 69 18 10/23/19 19:00 37 C 69 20 10/23/19 18:51 68 20 141/76 H 10/23/19 17:50 70 22 138/74 10/23/19 16:01 58 L 16 139/56 L 10/23/19 16:00 58 L 12 10/23/19 15:57 63 18 10/23/19 15:35 88 28 H 10/23/19 15:32 67 15 10/23/19 15:09 74 17 10/23/19 15:02 63 20 131/82 10/23/19 15:01 65 20 10/23/19 15:00 73 18 131/82 10/23/19 14:29 70 18 10/23/19 13:21 36.6 C 71 20 153/83 H BP Pulse Ox Pulse Ox 10/23/19 19:28 132/66 95 10/23/19 19:00 132/66 95 10/23/19 18:51 94 10/23/19 17:50 97 10/23/19 16:01 99 10/23/19 16:00 79 L 10/23/19 15:57 93 10/23/19 15:35 94 10/23/19 15:32 94 10/23/19 15:09 94 10/23/19 15:02 94 10/23/19 15:01 95 10/23/19 15:00 10/23/19 14:29 153/73 H 94 10/23/19 13:21 94 PG Care Time/CCT Total # of Minutes Spent Total Time Spent with Patient: Total time spent is greater than 50% in coordination of care (as documented) at patient's floor/unit and/or counseling patient:
[2019-10-24] MEDS: LEVALBUTEROL HCL 1.25 MG/3 ML NEB NEB SCH ×3 (01:06→13:21)
[2019-10-24 07:00] LABS: Hematocrit (blood only) 40.9 % (42-52); Hemoglobin 14.2 g/dL (14.0-18.0); Mean Corpuscular Hemoglobin 30.9 pg (25-34); Mean Corpuscular Hgb Conc 34.7 g/dL (32-36); Mean Corpuscular Volume 88.9 fL (80-100); Mean Platelet Volume 9.4 fL (7.4-10.4); Platelet Count 237 K/uL (130-400); RDW Coefficient of Variation 12.2 % (11.5-14.5); RDW Standard Deviation 38.9 fL (36.4-46.3); White Blood Count 13.39 K/uL (4.8-10.8)
[2019-10-24 07:19] LABS: Estimated Average Glucose 120 mg/dl; Hemoglobin A1C 5.8 % (4.5-5.6)
[2019-10-24 07:34] LABS: BUN Creatinine Ratio 20.8 (10-20); Calcium 8.4 mg/dl (8.5-10.1); Creatinine Clr Calc Pharmacy 107.1 ml/min; Est GFR (African American) 114.8; Est GFR (Non-African American) 99.1
[2019-10-24] MEDS ORDERED: predniSONE 50 MG TAB PO SCH (09:00)
[2019-10-24] MEDS ORDERED: ALBUTEROL HFA 8 GM INHALER INH SCH (12:42)
[2019-10-24] MEDS ORDERED: levoFLOXacin 750 MG TAB PO ONE (12:57)
--- NOTE | 2019-10-27 20:28 | Discharge Summary ---
Date of Service October 24, 2019 Admission HPI Per Admitting Provider Patient is a 53-year-old male who does not normally follow with PCP presents with worsening shortness of breath on exertion which began of 3 to 6 months prior to arrival. Patient reports that walking up hills causes him to be short of breath. Patient also reports that bending forward also caused him to be short of breath. Patient denies any orthopnea. Patient reports that his shortness of breath has gotten worse in the past few days and has been accompanied by a productive cough with white phlegm as well as episodes of a dull chest pain. Pain would worsen with cough. Patient reports that the pain will currently rest and will last for hours.Patient reports having a [id number] history of smoking cigarettes. Patient denies ever having a poor function test. Patient denies any fever chills nausea vomiting. Patient quit smoking 7 years ago. H states he began smoking when he was 20. And never smoked more than a pack a day. Principal Diagnosis COPD exacerbation Discharge Exam Constitutional WD/WN, vitals as above well developed and well nourished Eyes PERRL, conjunctivae normal, anicteric sclerae ENMT external ear and nose normal, oropharynx normal Neck trachea midline, no thyromegaly Respiratory normal respiratory effort, lungs clear to auscultation Cardiovascular RRR, no murmur, no edema Gastrointestinal (Abdomen) normal bowel sounds, soft, nontender, no hepatosplenomegaly Musculoskeletal no cyanosis or clubbing, extremities motor strength 5/5 Skin no rashes, warm and dry Neurologic PERRL, EOMI, accommodation nl, no face palsy, no dysarthria Psychiatric A+Ox3, euthymic affect Lymphatic no cervical or axillary lymphadenopathy Discharge Data Allergies Allergy/AdvReac Type Severity Reaction Status Date / Time No Known Allergies Allergy Verified 10/23/19 15:32 Consultations 10/23/19 16:39 ED Decision to Admit Stat Hospital Course (1) Hypoxia: due to problem below (2) COPD exacerbation: 53 yo male with 25 pack year history with SOB on exertion Questionable history of COPD. Patient has never had Pulmonary function test. This will need to be done as an outpatient. will obtain echocardiogram. will place patient on steroids.Will continue levaquin. willl place on nebs. On day of discharge, Patient reports he feels better and would like to be discharged. He wanted his medications sent to his pharmacy eventhough the pharmcay was closed. hE DID NOT WANT IT SENT TO A DIFFERENT PHARMACY, EXPLAINED THAT THIS MAY HAVE AN AFFECT OF THE EFFICACY OF HIS ANTIBIOTICS HE WOULD TAKE IT 12 HOURS LATE. Patient will need PFTs done as an outpatient. will set him up with a PCP. He has no insurance. Total Time Total Time Spent Total Time Spent (In Minutes): 31 Total Time Includes: Examination of the Patient, Discharge Planning and Medication Reconciliation Discharge Plan Discharge Items Patient Disposition: Home - Self-Care Reason For Visit: CHEST PAIN Discharge Diagnosis: Chest pain Activity: Resume your previous activity Non-emergency contact: Primary Care Provider Call non-emergency contact if: you have any medication questions Follow-up/Referrals: PCP,NO [Primary Care Provider] - Diet: Regular Addtl Attending Provider Instructions: It appears you had a COPD flair up. You will be discharge on antibiotics and steroids. will recommend you followup with a PCP. Will set you up with one. will also give you a script for albuterol rescue inhaler. You will need a pulmonary function test at discharge Pending Studies at Discharge: No Stand-Alone Forms: Call Back Authorization, [facility], Smoking Cessation Medications and DC Order Prescriptions: New levofloxacin [Levaquin] 750 mg tablet 750 mg PO QPM 4 Days Qty: 4 RF: 0 prednisone 10 mg tablet 10 mg PO DAILY Qty: 20 RF: 0 albuterol sulfate 90 mcg/actuation HFA aerosol inhaler 2 puffs INH Q8H PRN (Reason: shortness of breath or wheezing) Qty: 8.5 RF: 0 Discharge Orders: Discharge Order (Routine); Ordered 10/24/19 Ordered By: Gal Araujo/Other Patient Handouts: Levofloxacin Oral tablet, Prednisone Oral tablet Admission Data Admit Date/Time: 10/23/19 17:05 Attending Provider: Gal Bennett Admit Provider: Gal Bennett Primary Care Provider: PCP,NO Other Providers: Gal Bennett Other Interventions: Discharge Summary Assessment (RN) Last Done: 10/24/19 12:50 DC Date/Time DO NOT enter until pt leaves facility: 10/24/19 12:50
== END 2019-10-24 12:50 | disposition home or self-care (01) ==
LOC: ED 13:11 → 2S 13:11

== ENCOUNTER 2021-02-25 23:27 | Observation (INO) ==
[2021-02-25] MEDS ORDERED: FAMOTIDINE 20MG IV PUSH 20 MG/5 ML SYR IV STA (23:40)
[2021-02-25] MEDS ORDERED: ONDANSETRON INJ 2 MG/ML 2 ML VIAL IV STA (23:40)
[2021-02-25] MEDS ORDERED: SODIUM CHLORIDE 0.9% 1000ML 1,000 ML IV SCH (23:45)
[2021-02-26] MEDS ORDERED: PANTOprazole 80 MG in DEXTROSE 5% 100 ML IV STA (00:02)
[2021-02-26 00:16] LABS: Basophils # (auto) 0.02 K/uL (0-0.2); Basophils % (auto) 0.2 %; Eosinophils # (auto) 0.17 K/uL (0-0.5); Eosinophils % (auto) 1.7 %; Hematocrit (blood only) 38.1 % (42-52); Hemoglobin 13.6 g/dL (14.0-18.0); Immature Granulocytes # (auto) 0.02 K/uL (0.00-0.02); Immature Granulocytes % (auto) 0.2 %; Lymphocytes # (auto) 2.14 K/uL (1.2-3.4); Lymphocytes % (auto) 21.7 %; Mean Corpuscular Hemoglobin 31.1 pg (25-34); Mean Corpuscular Hgb Conc 35.7 g/dL (32-36); Mean Corpuscular Volume 87.2 fL (80-100); Monocytes # (auto) 0.96 K/uL (0.11-0.59); Monocytes % (auto) 9.7 %; Neutrophils # (auto) 6.56 K/uL (1.4-6.5); Neutrophils % (auto) 66.5 %; Platelet Count 269 K/uL (130-400); RDW Coefficient of Variation 12.1 % (11.5-14.5); RDW Standard Deviation 39.1 fL (36.4-46.3); Red Blood Count 4.37 M/uL (4.7-6.1); White Blood Count 9.87 K/uL (4.8-10.8)
[2021-02-26 00:24] LABS: Partial Thromboplastin Ratio 0.9; Partial Thromboplastin Time 24.9 Seconds (21.0-31.0); Prothrombin Time 10.4 Seconds (9.0-12.0)
[2021-02-26 00:31] LABS: Albumin Level 3.1 gm/dl (3.4-5.0); BUN Creatinine Ratio 20.7 (10-20); Creatinine Clr Calc Pharmacy 111.3 ml/min; Est GFR (African American) 116.1; Est GFR (Non-African American) 100.2; Potassium 3.5 mmol/L (3.5-5.1)
[2021-02-26 00:33] LABS: Albumin Globulin Ratio 0.8 (0.9-2); Bilirubin,Total 0.2 mg/dl (0.2-1); Globulin 3.8 gm/dl (2.5-4.0); Total Protein 6.9 gm/dl (6.4-8.2)
--- NOTE | 2021-02-26 00:43 | Emergency Department Note ---
History of Present Illness General Chief complaint: Abdominal Pain Stated complaint: ABD PAIN - WAS HERE ON SATURDAY Time Seen by Provider: 02/25/21 23:38 History of Present Illness Maximum Pain Intensity: 2 This 55-year-old presents to the ER complaining of epigastric discomfort and bl ack stool today he was been on penicillin oxycodone and Motrin for infected tooth Location: Epigastric region Quality: Painful Severity: Moderate Duration: Today Timing: Today Context: Patient was concerned and came in Modifying factors: better with nothing; worse with eating Patient states he has a history of GERD that has been untreated. He does not have a family care doctor. He does not routinely see the doctor. Patient denies chest pain, dyspnea, fevers, vomiting, diarrhea. Patient had a bowel movement today and was black per patient. No prior history of blood transfusions. No alcohol or drug use. Home Medications Medication Instructions Recorded Confirmed Type albuterol sulfate [Proventil HFA] 2 puffs INH Q6H PRN #8 gm 06/24/20 02/26/21 Rx ibuprofen 400 mg PO Q6H PRN 06/24/20 02/26/21 History oxycodone-acetaminophen [Percocet] 1 tab PO Q6H PRN #12 tab 02/21/21 02/26/21 Rx penicillin V potassium 500 mg PO QID 10 Days #40 tab 02/21/21 02/26/21 Rx Allergies Allergy/AdvReac Type Severity Reaction Status Date / Time No Known Allergies Allergy Verified 02/26/21 00:04 Past Med/Surg History Medical History (Updated 02/26/21 @ 00:43 by Freda Brasher PA-C) Asthma GERD (gastroesophageal reflux disease) Surgical History (Updated 02/26/21 @ 00:41 by Freda Brasher PA-C) No pertinent past surgical history Family History Mother Diabetes Denies family history of Ovarian cancer Prostate cancer Myocardial infarction Breast cancer COPD (chronic obstructive pulmonary disease) Colorectal cancer Social History Smoking Status: Never smoker Tobacco Type: Smokeless Tobacco (Dip or Chew) Number of Years Since Quit: 15; Hx Alcohol Use: Yes Alcohol type: beer Hx Substance Use: No Preferred Language: Tajik Visual Impairment: No Limitations Hearing Ability: Normal Disc Inspector Required: No Beliefs That Will Affect Care: None marital status: Current Living Situation: Spouse current occupational status: employed Feels Safe at Home: Yes Assistive Devices: Glasses Review of Systems A total of 10 systems reviewed and were otherwise negative Physical Exam Vital Signs Vital Signs - 24 hr 02/25/21 23:29 02/26/21 00:09 02/26/21 00:11 Temperature 36.4 C L Temperature Source Temporal Artery Scan Pulse Rate 68 58 L 60 Pulse Rate from SpO2 Sensor 61 Respiratory Rate 18 13 17 Respiratory Effort / Characteristics Non-Labored Spontaneous Respiratory Depth Normal Blood Pressure 151/69 H 118/74 Blood Pressure Mean 96 88 Pulse Oximetry 94 94 95 Oxygen Delivery Method Room Air Room Air Room Air Sepsis Recent Fever Within 48 Hours No Sepsis New/Unexplained Change in Mental Status No Sepsis Action Taken by Nursing No Action Required 02/26/21 00:14 02/26/21 01:11 02/26/21 01:12 Temperature Temperature Source Pulse Rate 65 58 L 56 L Pulse Rate from SpO2 Sensor 63 58 L 56 L Respiratory Rate 22 15 20 Respiratory Effort / Characteristics Respiratory Depth Blood Pressure 132/75 Blood Pressure Mean 94 Pulse Oximetry 95 95 95 Oxygen Delivery Method Room Air Room Air Room Air Sepsis Recent Fever Within 48 Hours Sepsis New/Unexplained Change in Mental Status Sepsis Action Taken by Nursing 02/26/21 01:30 02/26/21 02:00 02/26/21 02:15 Temperature Temperature Source Pulse Rate 57 L 58 L 64 Pulse Rate from SpO2 Sensor 58 L 57 L 63 Respiratory Rate 20 20 22 Respiratory Effort / Characteristics Respiratory Depth Blood Pressure 124/75 126/77 Blood Pressure Mean 91 93 Pulse Oximetry 94 94 95 Oxygen Delivery Method Room Air Room Air Room Air Sepsis Recent Fever Within 48 Hours Sepsis New/Unexplained Change in Mental Status Sepsis Action Taken by Nursing VITALS: Vitals are noted on the nurse's note and reviewed by myself. Vital signs stable. GENERAL: Pleasant male, in no acute distress, nondiaphoretic, well-developed well-nourished. SKIN: Capillary reflex less than 2 seconds. HEENT: Normocephalic. PERRLA. EOMI. Nares patent. Mucous membranes moist. Neck is supple without nuchal rigidity. HEART: Regular rate and rhythm LUNGS: Clear to auscultation bilaterally without wheezes, rales or rhonchi. No retractions or accessory muscle use. ABDOMEN: Positive bowel sounds x 4. Normal tympanic percussion. Soft, nontender, without masses or organomegaly. Green sign negative. No guarding or rebound tenderness. No CVA tenderness rectal exam: Dark brown stool, guaiac positive, traffic lieutenant present MUSCULOSKELETAL: No gross musculoskeletal defects. NEURO: Patient was alert and oriented to person place and time. No focal neurological deficits. Course Administered Medications Discontinued Medications Sodium Chloride (Nss 1000ml) 1,000 mls @ 999 mls/hr IV .Q1H1M FREDERIC Stop: 02/26/21 00:45 Last Infusion: 02/26/21 01:02 Dose: 0 mls/hr Documented by: [id number] Admin: 02/26/21 00:02 Dose: 999 mls/hr Documented by: [id number] Famotidine (Pepcid 20mg Iv Push) 20 mg in 5 mls @ 2.5 mls/min IV NOW STA Stop: 02/25/21 23:41 Last Admin: 02/26/21 00:02 Dose: 2.5 mls/min Documented by: [id number] Pantoprazole Sodium 80 mg/ (Dextrose) 100 mls @ 400 mls/hr IV ONE STA Stop: 02/26/21 00:16 Last Infusion: 02/26/21 00:32 Dose: 0 mls/hr Documented by: [id number] Admin: 02/26/21 00:12 Dose: 400 mls/hr Documented by: [id number] Ioversol (Ioversol 100ml) 94 ml IV ONCE ONE Stop: 02/26/21 01:04 Last Admin: 02/26/21 01:03 Dose: 94 ml Documented by: [id number] Ondansetron HCl (Ondansetron Inj 2 Mg/Ml 2 Ml Vial) 4 mg IV ONE STA Stop: 02/25/21 23:41 Last Admin: 02/26/21 00:02 Dose: 4 mg Documented by: [id number] Medical Decision Making Medical Records Attestation: I reviewed the patient's medical records. Home Medications Current Medication List: was personally reviewed by me Laboratory Data Attestation: I reviewed the patient's lab results. Result diagrams: 02/25/21 23:40 02/25/21 23:40 Lab Results 02/25/21 02/25/21 02/25/21 Range/Units 23:40 23:40 23:40 WBC 9.87 (4.8-10.8) K/uL RBC 4.37 L (4.7-6.1) M/uL Hgb 13.6 L (14.0-18.0) g/dL Hct 38.1 L (42-52) % MCV 87.2 (80-100) fL MCH 31.1 (25-34) pg MCHC 35.7 (32-36) g/dL RDW Std Deviation 39.1 (36.4-46.3) fL RDW Coeff of Nicolle 12.1 (11.5-14.5) % Plt Count 269 (130-400) K/uL MPV 9.0 (7.4-10.4) fL Immature Gran % (Auto) 0.2 % Neut % (Auto) 66.5 % Lymph % (Auto) 21.7 % Hubbard % (Auto) 9.7 % Eos % (Auto) 1.7 % Baso % (Auto) 0.2 % Neut # (Auto) 6.56 H (1.4-6.5) K/uL Lymph # (Auto) 2.14 (1.2-3.4) K/uL Hubbard # (Auto) 0.96 H (0.11-0.59) K/uL Eos # (Auto) 0.17 (0-0.5) K/uL Baso # (Auto) 0.02 (0-0.2) K/uL Immature Gran # (Auto) 0.02 (0.00-0.02) K/uL PT 10.4 (9.0-12.0) Seconds INR 1.0 (0.9-1.1) APTT 24.9 (21.0-31.0) Seconds PTT Ratio 0.9 Sodium 140 (136-145) mmol/L Potassium 3.5 (3.5-5.1) mmol/L Chloride 106 (98-107) mmol/L Carbon Dioxide 30 (21-32) mmol/L Anion Gap 4.0 (3-11) BUN 16 (7-18) mg/dl Creatinine 0.78 (0.6-1.4) mg/dl Est Cr Clr Drug Dosing 111.3 ml/min Est GFR ( Amer) 116.1 Est GFR (Non-Af Amer) 100.2 BUN/Creatinine Ratio 20.7 H (10-20) Glucose 124 H (70-99) mg/dl Calcium 8.0 L (8.5-10.1) mg/dl Total Bilirubin 0.2 (0.2-1) mg/dl AST 32 (15-37) U/L ALT 40 (12-78) U/L Alkaline Phosphatase 80 (45-117) U/L Total Protein 6.9 (6.4-8.2) gm/dl Albumin 3.1 L (3.4-5.0) gm/dl Globulin 3.8 (2.5-4.0) gm/dl Albumin/Globulin Ratio 0.8 L (0.9-2) POC Stool Occult Blood (Negative) Blood Type Rho(D) Type Antibody Screen 02/25/21 02/25/21 02/26/21 Range/Units 23:58 23:58 Unknown WBC (4.8-10.8) K/uL RBC (4.7-6.1) M/uL Hgb (14.0-18.0) g/dL Hct (42-52) % MCV (80-100) fL MCH (25-34) pg MCHC (32-36) g/dL RDW Std Deviation (36.4-46.3) fL RDW Coeff of Nicolle (11.5-14.5) % Plt Count (130-400) K/uL MPV (7.4-10.4) fL Immature Gran % (Auto) % Neut % (Auto) % Lymph % (Auto) % Hubbard % (Auto) % Eos % (Auto) % Baso % (Auto) % Neut # (Auto) (1.4-6.5) K/uL Lymph # (Auto) (1.2-3.4) K/uL Hubbard # (Auto) (0.11-0.59) K/uL Eos # (Auto) (0-0.5) K/uL Baso # (Auto) (0-0.2) K/uL Immature Gran # (Auto) (0.00-0.02) K/uL PT (9.0-12.0) Seconds INR (0.9-1.1) APTT (21.0-31.0) Seconds PTT Ratio Sodium (136-145) mmol/L Potassium (3.5-5.1) mmol/L Chloride (98-107) mmol/L Carbon Dioxide (21-32) mmol/L Anion Gap (3-11) BUN (7-18) mg/dl Creatinine (0.6-1.4) mg/dl Est Cr Clr Drug Dosing ml/min Est GFR ( Amer) Est GFR (Non-Af Amer) BUN/Creatinine Ratio (10-20) Glucose (70-99) mg/dl Calcium (8.5-10.1) mg/dl Total Bilirubin (0.2-1) mg/dl AST (15-37) U/L ALT (12-78) U/L Alkaline Phosphatase (45-117) U/L Total Protein (6.4-8.2) gm/dl Albumin (3.4-5.0) gm/dl Globulin (2.5-4.0) gm/dl Albumin/Globulin Ratio (0.9-2) POC Stool Occult Blood Positive A (Negative) Blood Type Cancelled A Positive Rho(D) Type Cancelled Antibody Screen Cancelled NEGATIVE Imaging Data Attestation: I personally reviewed and interpreted this imaging study as follows: MDM Narrative Prior records/ancillary studies reviewed. Triage Nursing notes reviewed. Additional history obtained from the nursing. The patient's history was concerning for possible gastrointestinal bleeding. Differential diagnosis: Etiologies such as diverticulosis, AVM, coagulopathy, colitis, inflammatory bowel disease, malignancy, Chinyere-Khan tear, esophagitis, peptic ulcer disease, variceal bleed, gastritis, epistaxis, fissure, hemorrhoids, as well as others were entertained. Physical exam: As above. The patients vital signs were stable. ER treatment provided: An order was placed for continuous cardiac monitoring. The monitor shows a rate of 60-100 with a sinus rhythm. Pepcid, Protonix, Zofran, IV fluids On reassessment the patient felt better. Diagnostics interpreted by me: The labs revealed mild anemia Imaging studies: CT ABDOMEN & PELVIS With Contrast: Comparison: None. Clear lung bases. Normal cardiac size. Hypoattenuated structure within the caudate lobe measuring 1.2 x 1.0 cm, likely a cyst. Remainder of the liver, gallbladder and biliary system unremarkable. Normal bilateral adrenal glands, kidneys, normal spleen, pancreas. Unremarkable stomach. Mild atherosclerotic disease of aorta otherwise normal aorta and retroperitoneum. Slightly distended small bowel with foamy debris within the lumen which may indicate malabsorption versus enteritis. Normal appendix. Nonspecific fecal debris within the colon with no inflammation. Unremarkable urinary bladder. Normal size of prostate gland. Small right-sided fat-containing inguinal hernia. Mild degenerative disease at L5-S1. Radiologist: Nicolasa De Oliveira MD Consultation: A consultation was placed with Dr. Prado, hospitalist. The case was discussed and diagnostics were reviewed. The patient was evaluated in the ER for further treatment. This appears to be consistent with GI bleed. Guaiac was positive. He has been taking excess Motrins recently. He has had untreated GERD. Patient will be evaluated by medicine for possible admission. Patient is agreeable. By the evaluation outlined above emergent etiologies such as esophageal perforation, variceal bleed, coagulopathy, epistaxis, malignancy, inflammatory bowel disease, as well as others were deemed relatively unlikely. The pt informed about the findings as listed above. All questions were answered and pleased with the treatment. The chart was completed utilizing [employer] Speech voice recognition software. Grammatical errors, random word insertions, pronoun errors, and incomplete sentences are an occassional consequence of this system due to software limitations, ambient noise, and hardware issues. Any formal questions or concerns about the content, text, or information contained within the body of this dictation should be directly addressed to the physician judicial assistant for clarification. Impression & Plan GERD (gastroesophageal reflux disease), GI bleed due to NSAIDs Discharge Plan Visit Data Chief Complaint: Abdominal Pain Stated Complaint: ABD PAIN - WAS HERE ON SATURDAY ED Provider: [facility] Midlevel Provider: Freda Brasher Discharge Problem: GERD (gastroesophageal reflux disease), GI bleed due to NSAIDs Patient Disposition: Admitted As Inpatient Condition: Fair Forms Stand Alone Forms: My [employer] Prescriptions Prescriptions: No Action ibuprofen 200 mg Tablet 400 mg PO Q6H PRN (Reason: Fever Or Pain) RF: 0 albuterol sulfate [Proventil HFA] 90 mcg/actuation HFA aerosol inhaler 2 puffs INH Q6H PRN (Reason: shortness of breath or wheezing) Qty: 8 RF: 0 penicillin V potassium 500 mg tablet 500 mg PO QID 10 Days Qty: 40 RF: 0 oxycodone-acetaminophen [Percocet] 5-325 mg tablet 1 tab PO Q6H PRN (Reason: pain) Qty: 12 RF: 0 Referrals Referrals: PCP,NO [Primary Care Provider] - Discharge Problem: GERD (gastroesophageal reflux disease) Qualifiers: Esophagitis presence: esophagitis presence not specified Qualified Code(s): K21.9 - Gastro-esophageal reflux disease without esophagitis
[2021-02-26] MEDS ORDERED: OPTIRAY 320 100ml IV ONE (01:03)
[2021-02-26] MEDS ORDERED: ONDANSETRON INJ 2 MG/ML 2 ML VIAL IV PRN (03:00)
--- NOTE | 2021-02-26 03:14 | History & Physical Report ---
Date of Service February 26, 2021 Assessment & Plan (1) GI bleed due to NSAIDs: Mr. Jenkins is a 55 yo M who presented for evaluation of progressive epigastric pain and melena. - thought to be secondary to an upper GI bleed - likely due to recent NSAID overuse and chronic untreated GERD - patient is hemodynamically stable - given 80mg IV protonix in ED. Although I intended to continue IV protonix - I received a notification from pharmacy indicating it was on back-order. Will use IV pepcid instead - GI consulted; patient NPO in the event of EDG - avoid further NSAID use (2) GERD (gastroesophageal reflux disease): - chronic history of untreated GERD - continue IV pepcid - patient does not use ETOH, however had been (over)using NSAIDs. Consumes coffee + tomatoe based products on regular basis - recommend H2 esthela or PPI as outpatient (3) Acute periodontal abscess: - patient diagnosed with dental abscess during ED visit on 02/21/21 - continue Penicillin 500mg QID until 03/03/21 (10 day course) - upcoming dental visit at end of February 2021 (4) Anemia: - Hgb 13.6 on admission, MCV 87 - normocytic - likely secondary to upper GI bleed - hemodynamically stable - trend CBC (5) Melena: - likely secondary to upper GI bleed as above (6) Wheezing: - appreciated on exam - history of tobacco smoke(fortunately he has achieved cessation) - likely a history of underlying COPD - I will start patient on Atrovent while inpatient - Albuterol prn (7) Hypocalcemia: - level at 8.0 on admission - ionized Ca level ordered Dispo: Med/Surg with tele DVT ppx: chemical contraindicated in setting of acute GI bleed; SCDs Diet: NPO in anticipation of EDG. NSS at 100mls/hhr Code: Full, I discussed with patient History of Present Illness Primary Care Provider: NO PCP Mr. Jenknis is a 55 yo M with a PMHx of GERD (not on pharmacotherapy) who presented to the emergency department for evaluation of progressive epigastric pain of 2 days duration and passage of black stool. Of note, Mr. Jenkins was evaluated in the ED on 02/21/21 for a dental infection - he was prescribed a course of penicillin and given a script of Percocet for pain. In addition to the Percocet, he was also taking Motrin for the discomfort - on one occasion in the last 5 days, he exceeded the recommend daily intake (he took between 10-12 tablets). He made an appointment to be seen at [facility], but it is not until the end of this month. He is not on a daily baby aspirin or a blood thinner. He denies bleeding from any other source, ie hematuria, bruising on body. He denies seeing any bright red blood in his stool. He has no personal or family history of blood clotting disorder. He denies any ETOH use. He does drink 1 cup of coffee each day and consumes tomato-based products. He reports a history of smoking for 'many years,' but does state he quit 15 years ago. He used to use an inhaler in the past, but has not done so in several years. He reports routinely getting short of breath with any exertion. In the ED, he was hemodynamically stable. His Hgb was mildly low at 13.6, MCV at 87. His stool was guiac positive. Platelets normal. Coags were normal. EKG showing normal sinus rhythm. CT scan of A/P showing no source of acute bleed. Patient was given Protonix 80mg, IV once along with Pepcid 20mg in the ED. He was also given zofran and 1 liter of normal saline. Allergies Allergy/AdvReac Type Severity Reaction Status Date / Time No Known Allergies Allergy Verified 02/26/21 00:04 Home Medications Medication Instructions Recorded Confirmed Type albuterol sulfate [Proventil HFA] 2 puffs INH Q6H PRN #8 gm 06/24/20 02/26/21 Rx ibuprofen 400 mg PO Q6H PRN 06/24/20 02/26/21 History oxycodone-acetaminophen [Percocet] 1 tab PO Q6H PRN #12 tab 02/21/21 02/26/21 Rx penicillin V potassium 500 mg PO QID 10 Days #40 tab 02/21/21 02/26/21 Rx omeprazole 40 mg PO DAILY 84 Days #84 cap 02/26/21 Rx tiotropium bromide [Spiriva 2 inh INHALATION DAILY #4 g 02/26/21 Rx Respimat] Past Med/Surg History Medical History (Updated 02/26/21 @ 05:12 by Melissa Merida MD) Asthma GERD (gastroesophageal reflux disease) Surgical History (Updated 02/26/21 @ 00:41 by Freda Brasher PA-C) No pertinent past surgical history Family History Mother Diabetes Denies family history of Ovarian cancer Prostate cancer Myocardial infarction Breast cancer COPD (chronic obstructive pulmonary disease) Colorectal cancer Social History Smoking Status: Former smoker Tobacco Type: Smokeless Tobacco (Dip or Chew) Smoking End Date: 2004; Number of Years Since Quit: 15; Second Hand Exposure: No; Hx Alcohol Use: No Hx Substance Use: No Preferred Language: Ecuadorean Visual Impairment: No Limitations Hearing Ability: Normal Architectural Job Captain Required: No Beliefs That Will Affect Care: None marital status: Current Living Situation: Spouse Current Living Situation Comment: at home current occupational status: employed Other Information That Helps Us Care for You: No Feels Safe at Home: Yes Safety Concerns: Feels Safe At This Time Assistive Devices: None Review of Systems 2 Constitutional: no weakness Respiratory: + dyspnea on exertion (chronic) Gastrointestinal: + melena Physical Exam Constitutional: WD/WN, vitals as above cooperative; no acute distress Eyes: PERRL, conjunctivae normal, anicteric sclerae ENMT: external ear and nose normal, oropharynx normal Neck: trachea midline, no thyromegaly Respiratory: normal respiratory effort; no respiratory distress, no cough and not tachypneic Auscultation: + wheezes (on expiration) Cardiovascular: RRR, no murmur, no edema Heart Sounds: normal S1 and normal S2 Extremities: no pedal edema Gastrointestinal (Abdomen): normal bowel sounds, soft, nontender, no hepatosplenomegaly Skin: no rashes, warm and dry Psychiatric: A+Ox3, euthymic affect Results & Data Results & Data ([facility]) Vital Signs (Past 12 Hours) Vital Signs Temp Pulse Resp BP Pulse Ox 02/26/21 02:15 64 22 126/77 95 02/26/21 02:00 58 L 20 124/75 94 02/26/21 01:30 57 L 20 94 02/26/21 01:12 56 L 20 95 02/26/21 01:11 58 L 15 132/75 95 02/26/21 00:14 65 22 95 02/26/21 00:11 60 17 118/74 95 02/26/21 00:09 58 L 13 94 02/25/21 23:29 36.4 C L 68 18 151/69 H 94 Supervising Physician Co-Signing Physician Notes Attending addendum: I have physically seen this patient, have supervised the medical residents activities, and agree with the H&P unless as otherwise noted. Assessment and Plan: NSAID induced upper GI bleeding/GERD- Protonix bolus then drip N.p.o. Famotidine 20 mg IV every 12 hours Zofran 4 mg IV every 6 hours as needed IV fluids Consult gastroenterology for EGD Acute periodontal disease- Patient has been taking increased NSAID dosing for pain relief Penicillin 500 4 times daily 10-day course was completed on 03/03/2021 Would consider change to ceftriaxone IV with GI bleeding noted Remaining orders and notations as noted Resident Activity Tracking Resident Involvement: Resident Care Provided Care Provided: Adult Hospital Medicine (1) GERD (gastroesophageal reflux disease) Esophagitis presence: esophagitis presence not specified Qualified Code(s): K21.9 - Gastro-esophageal reflux disease without esophagitis
[2021-02-26] MEDS ORDERED: SODIUM CHLORIDE 0.9% 1000ML 1,000 ML IV SCH (03:15)
[2021-02-26 03:54] LABS: Influenza A virus by PCR Negative (Neg); Influenza B virus by PCR Negative (Neg); RSV by PCR Negative (Neg); SARS CoV2 RNA(COVID-19) InHosp NEGATIVE (Negative)
[2021-02-26] MEDS ORDERED: ALBUTEROL HFA 8 GM INHALER INH PRN (04:21)
[2021-02-26] MEDS: PENICILLIN V POTASSIUM 500 MG TAB PO SCH ×3 (05:45→08:43)
--- NOTE | 2021-02-26 07:43 | Hospitalist Progress Note ---
Date of Service February 26, 2021 Assessment & Plan (1) GI bleed due to NSAIDs: Mr. Jenkins is a 55 yo M who presented for evaluation of progressive epigastric pain and melena. GI bleed secondary to NSAIDs Clinical history and physical exam findings are consistent with an upper GI bleed likely secondary to recent NSAID overuse and chronic untreated GERD. Patient was given 80 mg of IV Protonix in the ED, and placed on twice daily 20 mg famotidine upon admission. GI was consulted and patient was made n.p.o. overnight events they wish to pursue an EGD. Patient has been hemodynamically stable since admission. - Trend Daily CBC -hgb: 13.6->13.5 - patient is hemodynamically stable - 20 mg twice daily famotidine - GI consulted appreciate recommendations - - avoid further NSAID use #GERD chronic history of untreated GERD, patient does not use ETOH, however had been (over)using NSAIDs. Consumes coffee + tomatoe based products on regular basis. - recommend H2 esthela or PPI as outpatient -20 mg twice daily famotidine #Acute peridontal abscess patient diagnosed with dental abscess during ED visit on 02/21/21, has scheduled dental appointment at the end of February 2021 - continue Penicillin 500mg QID until 03/03/21 (10 day course) #Anemia Hgb 13.6 on admission, MCV 87 -> normocytic likely secondary to upper GI bleed. - hemodynamically stable - trend CBC #Melena - likely secondary to upper GI bleed as above #Wheezing Appreciated on exam, history of tobacco smoke(fortunately he has achieved cessation), likely a history of underlying COPD. Patient started on Atrovent and reports improvement in his breathing - Atrovent 2 puffs every 6 hours - Albuterol prn #Hypocalcemia - level at 8.0 on admission - ionized Ca level ordered Dispo: Med/Surg with tele DVT ppx: chemical contraindicated in setting of acute GI bleed; SCDs Diet: NPO in anticipation of EDG. NSS at 100mls/hhr Code: Full, I discussed with patient (2) GERD (gastroesophageal reflux disease): (3) Acute periodontal abscess: (4) Anemia: (5) Melena: (6) Wheezing: (7) Hypocalcemia: Admission and Anticipated Discharge Date Admission Date: February 26, 2021 Subjective Patient lying in bed this morning in no acute distress, resting comfortably. Patient endorses sleeping okay overnight, tolerating a diet, voiding, stooling. Acute concerns related to GI consultation, all questions answered Physical Exam Physical Exam: General: Lying in bed in no acute distress HEENT: Normocephalic atraumatic Neck: Normal vision inspection, trachea midline Cardiac: Regular rate and rhythm I did not appreciate significant murmurs rubs or gallops normal S1 normal S2, negative pedal edema, negative calf tenderness Respiratory: Clear to auscultation bilaterally with symmetrical chest expansion did not appreciate significant wheezes, rales, rhonchi GI: Soft, nontender, nondistended, bowel sounds present Neuro: Alert and oriented x3 Psych: Calm and cooperative with interview Results & Data Results & Data ([facility]) Vital Signs (Past 12 Hours) Vital Signs Temp Pulse Pulse Resp BP BP Pulse Ox 02/26/21 07:10 57 L 02/26/21 05:56 55 L 02/26/21 04:10 37.1 C 56 L 18 152/78 H 90 02/26/21 03:40 62 19 131/76 93 02/26/21 03:00 64 20 135/92 96 02/26/21 02:15 64 22 126/77 95 02/26/21 02:00 58 L 20 124/75 94 02/26/21 01:30 57 L 20 94 02/26/21 01:12 56 L 20 95 02/26/21 01:11 58 L 15 132/75 95 02/26/21 00:14 65 22 95 02/26/21 00:11 60 17 118/74 95 02/26/21 00:09 58 L 13 94 02/25/21 23:29 36.4 C L 68 18 151/69 H 94 Laboratory Results 02/26/21 02/26/21 02/26/21 Range/Units Unknown 07:45 07:45 WBC (4.8-10.8) K/uL RBC (4.7-6.1) M/uL Hgb 13.5 L (14.0-18.0) g/dL Hct 37.8 L (42-52) % MCV (80-100) fL MCH (25-34) pg MCHC (32-36) g/dL RDW Std Deviation (36.4-46.3) fL RDW Coeff of Nicolle (11.5-14.5) % Plt Count (130-400) K/uL MPV (7.4-10.4) fL Immature Gran % (Auto) % Neut % (Auto) % Lymph % (Auto) % [place] % (Auto) % Eos % (Auto) % Baso % (Auto) % Neut # (Auto) (1.4-6.5) K/uL Lymph # (Auto) (1.2-3.4) K/uL [place] # (Auto) (0.11-0.59) K/uL Eos # (Auto) (0-0.5) K/uL Baso # (Auto) (0-0.2) K/uL Immature Gran # (Auto) (0.00-0.02) K/uL PT (9.0-12.0) Seconds INR (0.9-1.1) APTT (21.0-31.0) Seconds PTT Ratio Sodium (136-145) mmol/L Potassium (3.5-5.1) mmol/L Chloride (98-107) mmol/L Carbon Dioxide (21-32) mmol/L Anion Gap (3-11) BUN (7-18) mg/dl Creatinine (0.6-1.4) mg/dl Est Cr Clr Drug Dosing ml/min Est GFR ( Amer) Est GFR (Non-Af Amer) BUN/Creatinine Ratio (10-20) Glucose (70-99) mg/dl Calcium (8.5-10.1) mg/dl Ionized Calcium 1.04 L (1.12-1.32) mmol/L Total Bilirubin (0.2-1) mg/dl AST (15-37) U/L ALT (12-78) U/L Alkaline Phosphatase (45-117) U/L Total Protein (6.4-8.2) gm/dl Albumin (3.4-5.0) gm/dl Globulin (2.5-4.0) gm/dl Albumin/Globulin Ratio (0.9-2) POC Stool Occult Blood Positive A (Negative) COVID-19 Eval Order SARS-CoV-2 (PCR) (Negative) Influenza Type A (PCR) (Neg) Influenza Type B (PCR) (Neg) RSV (RT-PCR) (Neg) Blood Type Rho(D) Type Antibody Screen 02/26/21 02/26/21 02/25/21 Range/Units 02:50 02:50 23:58 WBC (4.8-10.8) K/uL RBC (4.7-6.1) M/uL Hgb (14.0-18.0) g/dL Hct (42-52) % MCV (80-100) fL MCH (25-34) pg MCHC (32-36) g/dL RDW Std Deviation (36.4-46.3) fL RDW Coeff of Nicolle (11.5-14.5) % Plt Count (130-400) K/uL MPV (7.4-10.4) fL Immature Gran % (Auto) % Neut % (Auto) % Lymph % (Auto) % [place] % (Auto) % Eos % (Auto) % Baso % (Auto) % Neut # (Auto) (1.4-6.5) K/uL Lymph # (Auto) (1.2-3.4) K/uL [place] # (Auto) (0.11-0.59) K/uL Eos # (Auto) (0-0.5) K/uL Baso # (Auto) (0-0.2) K/uL Immature Gran # (Auto) (0.00-0.02) K/uL PT (9.0-12.0) Seconds INR (0.9-1.1) APTT (21.0-31.0) Seconds PTT Ratio Sodium (136-145) mmol/L Potassium (3.5-5.1) mmol/L Chloride (98-107) mmol/L Carbon Dioxide (21-32) mmol/L Anion Gap (3-11) BUN (7-18) mg/dl Creatinine (0.6-1.4) mg/dl Est Cr Clr Drug Dosing ml/min Est GFR ( Amer) Est GFR (Non-Af Amer) BUN/Creatinine Ratio (10-20) Glucose (70-99) mg/dl Calcium (8.5-10.1) mg/dl Ionized Calcium (1.12-1.32) mmol/L Total Bilirubin (0.2-1) mg/dl AST (15-37) U/L ALT (12-78) U/L Alkaline Phosphatase (45-117) U/L Total Protein (6.4-8.2) gm/dl Albumin (3.4-5.0) gm/dl Globulin (2.5-4.0) gm/dl Albumin/Globulin Ratio (0.9-2) POC Stool Occult Blood (Negative) COVID-19 Eval Order CovFluRsv at [facility] SARS-CoV-2 (PCR) NEGATIVE (Negative) Influenza Type A (PCR) Negative (Neg) Influenza Type B (PCR) Negative (Neg) RSV (RT-PCR) Negative (Neg) Blood Type A Positive Rho(D) Type Antibody Screen NEGATIVE 02/25/21 02/25/21 02/25/21 Range/Units 23:58 23:40 23:40 WBC (4.8-10.8) K/uL RBC (4.7-6.1) M/uL Hgb (14.0-18.0) g/dL Hct (42-52) % MCV (80-100) fL MCH (25-34) pg MCHC (32-36) g/dL RDW Std Deviation (36.4-46.3) fL RDW Coeff of Nicolle (11.5-14.5) % Plt Count (130-400) K/uL MPV (7.4-10.4) fL Immature Gran % (Auto) % Neut % (Auto) % Lymph % (Auto) % [place] % (Auto) % Eos % (Auto) % Baso % (Auto) % Neut # (Auto) (1.4-6.5) K/uL Lymph # (Auto) (1.2-3.4) K/uL [place] # (Auto) (0.11-0.59) K/uL Eos # (Auto) (0-0.5) K/uL Baso # (Auto) (0-0.2) K/uL Immature Gran # (Auto) (0.00-0.02) K/uL PT 10.4 (9.0-12.0) Seconds INR 1.0 (0.9-1.1) APTT 24.9 (21.0-31.0) Seconds PTT Ratio 0.9 Sodium 140 (136-145) mmol/L Potassium 3.5 (3.5-5.1) mmol/L Chloride 106 (98-107) mmol/L Carbon Dioxide 30 (21-32) mmol/L Anion Gap 4.0 (3-11) BUN 16 (7-18) mg/dl Creatinine 0.78 (0.6-1.4) mg/dl Est Cr Clr Drug Dosing 111.3 ml/min Est GFR ( Amer) 116.1 Est GFR (Non-Af Amer) 100.2 BUN/Creatinine Ratio 20.7 H (10-20) Glucose 124 H (70-99) mg/dl Calcium 8.0 L (8.5-10.1) mg/dl Ionized Calcium (1.12-1.32) mmol/L Total Bilirubin 0.2 (0.2-1) mg/dl AST 32 (15-37) U/L ALT 40 (12-78) U/L Alkaline Phosphatase 80 (45-117) U/L Total Protein 6.9 (6.4-8.2) gm/dl Albumin 3.1 L (3.4-5.0) gm/dl Globulin 3.8 (2.5-4.0) gm/dl Albumin/Globulin Ratio 0.8 L (0.9-2) POC Stool Occult Blood (Negative) COVID-19 Eval Order SARS-CoV-2 (PCR) (Negative) Influenza Type A (PCR) (Neg) Influenza Type B (PCR) (Neg) RSV (RT-PCR) (Neg) Blood Type Cancelled Rho(D) Type Cancelled Antibody Screen Cancelled 02/25/21 Range/Units 23:40 WBC 9.87 (4.8-10.8) K/uL RBC 4.37 L (4.7-6.1) M/uL Hgb 13.6 L (14.0-18.0) g/dL Hct 38.1 L (42-52) % MCV 87.2 (80-100) fL MCH 31.1 (25-34) pg MCHC 35.7 (32-36) g/dL RDW Std Deviation 39.1 (36.4-46.3) fL RDW Coeff of Nicolle 12.1 (11.5-14.5) % Plt Count 269 (130-400) K/uL MPV 9.0 (7.4-10.4) fL Immature Gran % (Auto) 0.2 % Neut % (Auto) 66.5 % Lymph % (Auto) 21.7 % [place] % (Auto) 9.7 % Eos % (Auto) 1.7 % Baso % (Auto) 0.2 % Neut # (Auto) 6.56 H (1.4-6.5) K/uL Lymph # (Auto) 2.14 (1.2-3.4) K/uL [place] # (Auto) 0.96 H (0.11-0.59) K/uL Eos # (Auto) 0.17 (0-0.5) K/uL Baso # (Auto) 0.02 (0-0.2) K/uL Immature Gran # (Auto) 0.02 (0.00-0.02) K/uL PT (9.0-12.0) Seconds INR (0.9-1.1) APTT (21.0-31.0) Seconds PTT Ratio Sodium (136-145) mmol/L Potassium (3.5-5.1) mmol/L Chloride (98-107) mmol/L Carbon Dioxide (21-32) mmol/L Anion Gap (3-11) BUN (7-18) mg/dl Creatinine (0.6-1.4) mg/dl Est Cr Clr Drug Dosing ml/min Est GFR ( Amer) Est GFR (Non-Af Amer) BUN/Creatinine Ratio (10-20) Glucose (70-99) mg/dl Calcium (8.5-10.1) mg/dl Ionized Calcium (1.12-1.32) mmol/L Total Bilirubin (0.2-1) mg/dl AST (15-37) U/L ALT (12-78) U/L Alkaline Phosphatase (45-117) U/L Total Protein (6.4-8.2) gm/dl Albumin (3.4-5.0) gm/dl Globulin (2.5-4.0) gm/dl Albumin/Globulin Ratio (0.9-2) POC Stool Occult Blood (Negative) COVID-19 Eval Order SARS-CoV-2 (PCR) (Negative) Influenza Type A (PCR) (Neg) Influenza Type B (PCR) (Neg) RSV (RT-PCR) (Neg) Blood Type Rho(D) Type Antibody Screen (1) GERD (gastroesophageal reflux disease) Esophagitis presence: esophagitis presence not specified Qualified Code(s): K21.9 - Gastro-esophageal reflux disease without esophagitis
[2021-02-26 07:54] LABS: Hematocrit (blood only) 37.8 % (42-52); Hemoglobin 13.5 g/dL (14.0-18.0)
[2021-02-26] MEDS ORDERED: Nursing to Pharmacy Communication SCH (08:45)
[2021-02-26] MEDS: IPRATROPIUM BROMIDE HFA INHALER INH SCH ×2 (08:47→13:46)
[2021-02-26] MEDS ORDERED: FAMOTIDINE 20 MG in SYRINGE 3 ML IV SCH (09:00)
--- NOTE | 2021-02-26 09:19 | CT Scan Report ---
ABDOMEN AND PELVIS CT WITH IV CONTRAST CT DOSE: 550.28 mGy.cm HISTORY: Severe upper abdominal pain. GI bleed. TECHNIQUE: Multiaxial CT images of the abdomen and pelvis were performed following the use of intrave nous contrast. A dose lowering technique was utilized adhering to the principles of ALARA. COMPARISON STUDY: None. FINDINGS: The lung bases are clear. No pneumoperitoneum. No pneumatosis. Tiny fat-containing right in guinal hernia. A 1.2 cm hypodense lesion within the caudate lobe of the liver. This favors a cyst. Th e gallbladder, spleen, adrenal glands, pancreas, and kidneys are unremarkable. No hydronephrosis. No retroperitoneal lymphadenopathy. Normal caliber abdominal aorta. The bladder is unremarkable. No pelv ic free fluid. No bowel wall thickening or obstruction. Normal appendix. Mild degenerative disease at L5-S1. Questionable thickening within the jejunal loops of the left side the abdomen favor underdist ention. IMPRESSION: 1. No definite bowel wall thickening or obstruction. 2. Normal appendix. 3. No hydronephrosis. 4. Questionable thickening within the jejunal loops within the left side of the abdomen is likely due to underdistention. No adjacent inflammatory change to suggest an acute process. ACT 112: Negative or not required by law. Electronically signed by: Madi Cha M.D. 02/26/2021 9:18 AM
--- NOTE | 2021-02-26 11:43 | Consultation Report ---
DATE OF CONSULTATION: 02/26/2021 REASON FOR EVALUATION: Melena and epigastric pain. HISTORY OF PRESENT ILLNESS: The patient is a 55-year-old with a bad left lower toothache for the last 5 days. He was taking up to 10-12 Motrin a day for the last 5 days. He has been started on antibiotics on 02/21/2021 when he presented to the Emergency Room, he was also given some Percocet. He is yet to see the dentist, but presented to the Emergency Room this morning with some melena. His hemoglobin is over 13 and he is hemodynamically stable since he has been receiving the Percocet. He said his epigastric pain has completely resolved and he feels back to normal. He has been placed on IV Pepcid because there is a shortage of Protonix. The patient denies prior history of peptic ulcer disease. He does not consume any alcohol. Does not take any aspirin or nonsteroidals on a regular basis. PAST MEDICAL HISTORY: Remarkable for asthma and acid reflux. MEDICATIONS: Albuterol inhaler. ALLERGIES: None. FAMILY HISTORY: Mother of diabetes. SOCIAL HISTORY: The patient does not smoke. Drinks occasional beer. He is and lives with his spouse. He has an outside job. PHYSICAL EXAMINATION: GENERAL: The patient appears in no acute distress. VITAL SIGNS: Normal. He is afebrile. ABDOMEN: Soft and nontender. IMPRESSION AND PLAN: The patient had an episode of melena and has been taking excessive amounts of ibuprofen for the last 5 days. He probably has an aspirin or nonsteroidal-induced gastritis or peptic ulcer, currently he is hemodynamically stable and he is off these medications on Pepcid. His epigastric pain is resolved and he has declined an EGD at this point in time. At this point, I would continue his medication in the form of Pepcid or PPI as an outpatient for 2 months and avoid nonsteroidals. If he has any overt signs of bleeding, then I would recommend an endoscopy at that time and he is agreeable to doing that showed that occasion arise. He should also follow up with his dentist to have his teeth addressed.
[2021-02-26] MEDS ORDERED: PENICILLIN V POTASSIUM 500 MG TAB PO SCH (12:00)
--- NOTE | 2021-02-26 12:15 | Discharge Summary ---
Date of Service February 26, 2021 Admission HPI Per Admitting Provider Mr. Jenkins is a 55 yo M with a PMHx of GERD (not on pharmacotherapy) who presented to the emergency department for evaluation of progressive epigastric pain of 2 days duration and passage of black stool. Of note, Mr. Jenkins was evaluated in the ED on 02/21/21 for a dental infection - he was prescribed a course of penicillin and given a script of Percocet for pain. In addition to the Percocet, he was also taking Motrin for the discomfort - on one occasion in the last 5 days, he exceeded the recommend daily intake (he took between 10-12 tablets). He made an appointment to be seen at [facility], but it is not until the end of this month. He is not on a daily baby aspirin or a blood thinner. He denies bleeding from any other source, ie hematuria, bruising on body. He denies seeing any bright red blood in his stool. He has no personal or family history of blood clotting disorder. He denies any ETOH use. He does drink 1 cup of coffee each day and consumes tomato-based products. He reports a history of smoking for 'many years,' but does state he quit 15 years ago. He used to use an inhaler in the past, but has not done so in several years. He reports routinely getting short of breath with any exertion. In the ED, he was hemodynamically stable. His Hgb was mildly low at 13.6, MCV at 87. His stool was guiac positive. Platelets normal. Coags were normal. EKG showing normal sinus rhythm. CT scan of A/P showing no source of acute bleed. Patient was given Protonix 80mg, IV once along with Pepcid 20mg in the ED. He was also given zofran and 1 liter of normal saline. Admission Exam Per Admitting Provider Constitutional: WD/WN, vitals as above cooperative; no acute distress Eyes: PERRL, conjunctivae normal, anicteric sclerae ENMT: external ear and nose normal, oropharynx normal Neck: trachea midline, no thyromegaly Respiratory: normal respiratory effort; no respiratory distress, no cough and not tachypneic Auscultation: + wheezes (on expiration) Cardiovascular: RRR, no murmur, no edema Heart Sounds: normal S1 and normal S2 Extremities: no pedal edema Gastrointestinal (Abdomen): normal bowel sounds, soft, nontender, no hepatosplenomegaly Skin: no rashes, warm and dry Psychiatric: A+Ox3, euthymic affect Principal Diagnosis NSAID induced GI bleed complicated by periodontal abscess Discharge Exam General: Lying in bed in no acute distress HEENT: Normocephalic atraumatic Neck: Normal vision inspection, trachea midline Cardiac: Regular rate and rhythm I did not appreciate significant murmurs rubs or gallops normal S1 normal S2, negative pedal edema, negative calf tenderness Respiratory: Clear to auscultation bilaterally with symmetrical chest expansion did not appreciate significant wheezes, rales, rhonchi GI: Soft, nontender, nondistended, bowel sounds present Neuro: Alert and oriented x3 Psych: Calm and cooperative with interview Discharge Data Allergies Allergy/AdvReac Type Severity Reaction Status Date / Time No Known Allergies Allergy Verified 02/26/21 00:04 Consultations 02/26/21 02:22 ED Decision to Admit Stat 02/26/21 03:05 Consult Gastroenterology Routine Ordered Studies 02/25/21 23:40 CT abd pelvis IV con only Urgent Hospital Course (1) GI bleed due to NSAIDs: Mr. Jenkins is a 55 yo M who presented for evaluation of progressive epigastric pain and melena. GI bleed secondary to NSAIDs Clinical history and physical exam findings are consistent with an upper GI bleed likely secondary to recent NSAID overuse and chronic untreated GERD. Patient was given 80 mg of IV Protonix in the ED, and placed on twice daily 20 mg famotidine upon admission. GI was consulted and patient was made n.p.o. overnight in an event they wish to pursue an EGD. Patient has been hemodynamically stable since admission. CBC the following morning demonstrated hemoglobin of 13.5. GI evaluated the patient and the patient denied an EGD, GI recommends 2 months of PPI as an outpatient and reevaluation should the bleeding recur. - avoid further NSAID use - Follow-up outpatient CBC in 1 week #GERD chronic history of untreated GERD, patient does not use ETOH, however had been (over)using NSAIDs. Consumes coffee + tomato based products on regular basis. To start omeprazole as an outpatient #Acute peridontal abscess patient diagnosed with dental abscess during ED visit on 02/21/21, has scheduled dental appointment at the end of February 2021 - continued Penicillin 500mg QID until 03/03/21 (10 day course) #Anemia Hgb 13.6 on admission, MCV 87 -> normocytic likely secondary to upper GI bleed. - hemodynamically stable -Follow-up outpatient CBC in 1 week #Melena - likely secondary to upper GI bleed as above #Wheezing Appreciated on exam, history of tobacco smoke(fortunately he has achieved cessation), likely a history of underlying COPD. Patient started on Atrovent and reports improvement in his breathing -DC Atrovent start Spiriva on discharge - Albuterol prn #Hypocalcemia - level at 8.0 on admission, iCal 1.04 will defer to PCP for further evaluation. - To replace calcium with [id number] oral one tablet daily. (2) GERD (gastroesophageal reflux disease): (3) Acute periodontal abscess: (4) Anemia: (5) Melena: (6) Wheezing: (7) Hypocalcemia: Total Time Total Time Spent Total Time Spent (In Minutes): 48 Discharge Plan Discharge Items Patient Disposition: Home - Self-Care Reason For Visit: GI BLEED Discharge Diagnosis: GI bleed complicated by periodontal abscess Condition on Discharge: Fair Activity: Resume your previous activity Non-emergency contact: Primary Care Provider Call non-emergency contact if: you have any medication questions, your pain is worsening and your temperature is above 101 Follow-up/Referrals: PCP,DHRUV [Primary Care Provider] - Diet: Regular Addtl Attending Provider Instructions: Care instructions: You were admitted to [facility] for treatment of acute GI bleed thought to be secondary to overuse of NSAIDs (ibuprofen). While hospitalized we monitored your blood levels (hemoglobin) which remained stable. We also consulted gastroenterology who recommended an EGD which she denied. They stated you were safe and stable for discharge and should your symptoms recur to represent for further evaluation and EGD at that time. They recommend you avoid nonsteroidal anti-inflammatories (ibuprofen and similar) and use Tylenol instead. We will also be starting you on a PPI (acid suppression medication) on discharge. While hospitalized it was also noticed that your lung function could be improved and there was a suspicion for COPD. You were started on a medication called Atrovent this will be converted to Spiriva on discharge. Both of these medications have been called into [facility]. A discharge summary will be sent to your primary care physician to ensure continuity of care. Please bring this discharge summary with you to your next office appointment so that your provider can review it at that time. Follow-up appointments: - Keep all your follow-up appointments as already scheduled. If you cannot make an appointment, notify your provider. - Please call to request a follow-up appointment with your primary care physician within one week of discharge. Please let us know if you are unable to obtain an appointment Follow-up labs: - Please go to a lab nearest you and obtain the requested lab work. Please have this completed at least 3 hours before your doctor's appointment (or the day before your appointment if possible). Medications: - Your medication list has been reviewed and reconciled upon discharge to ensure accuracy and continuity of care. - You are provided with a list of all your current medications at this time. Please review this list closely and make note of any changes. - Please take all of your medications exactly as prescribed. - Tell your primary care provider if you cannot afford your medications. - Call your primary care provider if you are having any side effects or any other problems. - Call your primary care provider before taking any over the counter medications or supplements, including herbals and vitamins, because some of these may interact with your current medications and/or make your symptoms worse. Symptoms: Please call your primary care provider for symptoms including, but not limited to: fevers (temperatures greater than 100.4), chills, intractable nausea or vomiting, diarrhea, rash, shortness of breath, bleeding, pain, or if you e xperience any worsening of the symptoms that brought you to the hospital. For EMERGENCY and VERY SERIOUS health-related issues, such as chest pain, shortness of breath, or sudden onset of the symptoms that brought you to the hospital, you may need to call 911 or go directly to the Emergency Room It has been our privilege to take care of you during your hospital stay. And Above All Else Feel Better! Best Wishes, King Leonard MD PGY2 Resident, Family & Community Medicine [facility] Res[facility] at [facility] [place] [id number] [facility], [address] MC: [address] [place] [address], [place] [address] Pending Studies at Discharge: No Stand-Alone Forms: My [facility], Smoking Cessation Medications and DC Order Prescriptions: New Spiriva Respimat 2.5 mcg/actuation mist 2 inh inhalation DAILY Qty: 4 RF: 0 omeprazole 40 mg capsule,delayed release(DR/EC) 40 mg PO DAILY 84 Days Qty: 84 RF: 0 Continued ibuprofen 200 mg Tablet 400 mg PO Q6H PRN (Reason: Fever Or Pain) RF: 0 albuterol sulfate [Proventil HFA] 90 mcg/actuation HFA aerosol inhaler 2 puffs INH Q6H PRN (Reason: shortness of breath or wheezing) Qty: 8 RF: 0 penicillin V potassium 500 mg tablet 500 mg PO QID 10 Days Qty: 40 RF: 0 oxycodone-acetaminophen [Percocet] 5-325 mg tablet 1 tab PO Q6H PRN (Reason: pain) Qty: 12 RF: 0 Discharge Orders: Discharge Order (Routine); Ordered 02/26/21 Ordered By: King Leonard Admission Data Admit Date/Time: 02/26/21 02:59 Attending Provider: Sue Brink Admit Provider: Melissa Merida Primary Care Provider: PCP,DHRUV Other Providers: Donnell Quezada ; Jose Alberto Hunter Other Interventions: Discharge Summary Assessment (RN) Last Done: 02/26/21 11:56 Supervising Physician Co-Signing Physician Notes Resident Physician Supervision Note: I independently interviewed and examined the patient and verified the andres history and physical, reviewed labs and image studies, discussed the case with the resident Dr. Leonard and agree with the findings and care plan. Resident Activity Tracking Resident Involvement: Resident Care Provided Care Provided: Adult Hospital Medicine
--- NOTE | 2021-02-26 20:57 | Billing Data ---
Date of Service February 26, 2021 Coding Level of Care Code 09381 Initial Inpt Care Lvl 3
== END 2021-02-26 14:33 | disposition home or self-care (01) ==
LOC: ED 23:27 → 2N 23:27 → SUATTDRO 02-26 02:59 → 2N 02-26 03:56